=== PATIENT | male | born 1960 | race Two or more races ===

== ENCOUNTER → 2023-05-29 08:19 | Outpatient (REF) | payer BC, SELFPAY | LOC: HWRAD 08:19 | PROVIDERS: ATTENDING PHYSICIAN Physician Assistant; FAMILY PHYSICIAN Family Medicine | DX: C64.2 Malignant neoplasm of left kidney, except renal pelvis (principal) | CPT/HCPCS: 71250; 74160; Q9967 ==

== ENCOUNTER → 2023-05-29 08:24 | Outpatient (REF) | payer SELFPAY | LOC: HWRAD 08:24 | PROVIDERS: ATTENDING PHYSICIAN Internal Medicine Cardiovascular Disease; FAMILY PHYSICIAN Family Medicine | DX: E78.2 Mixed hyperlipidemia (principal); R79.89 Other specified abnormal findings of blood chemistry; R73.9 Hyperglycemia, unspecified | CPT/HCPCS: 75571 ==

== ENCOUNTER → 2023-08-21 10:16 | Outpatient (REF) | payer BC, SELFPAY | LOC: RAD 10:16 | PROVIDERS: ATTENDING PHYSICIAN Internal Medicine Cardiovascular Disease; FAMILY PHYSICIAN Family Medicine | DX: I25.10 Atherosclerotic heart disease of native coronary artery without angina pectoris (principal) | CPT/HCPCS: 75572; Q9967 ==

== ENCOUNTER → 2023-08-31 09:42 | Outpatient (REF) | payer BC, SELFPAY | LOC: HWRAD 09:42 | PROVIDERS: ATTENDING PHYSICIAN Family Medicine | DX: R74.01 Elevation of levels of liver transaminase levels (principal) | CPT/HCPCS: 76700 ==

== ENCOUNTER 2023-12-16 16:42 | Emergency (ER) | payer BC, SELFPAY ==
[2023-12-16 16:49] VITALS: BP 156/95
[2023-12-16 17:19] VITALS: BP 139/89; BMI 33.1
[2023-12-16 17:21] VITALS: BP 139/89
--- NOTE | 2023-12-16 17:35 | ED.GENMED ---
History of Present Illness
<Caridad Pete PA-C - Last Filed: 12/17/23 00:28>
General
Chief Complaint: Abdominal Pain
Source: patient
Exam Limitations: none
Time Seen by Provider: 12/16/23 17:19
Nursing documentation reviewed up to this point in time: agreed with
History of Present Illness
History of Present Illness:
Patient is a 63-year-old male with history of kidney stones, kidney cancer status postresection presenting to the emergency department acute onset right lower quadrant abdominal pain around 11 AM this morning. Patient states he had a sharp pain in
his right lower quadrant which has been intermittent since. Patient denies any radiation of pain into his back or into his groin. He has had some nausea, although no vomiting. He then went to the bathroom and noticed very dark/bloody urine. Came
to the emergency department for further evaluation. Patient denies any associated dysuria. Pain feels similar to prior kidney stones.
Patient does note some chills/sweats throughout the night last night although he did receive his COVID/flu vaccine yesterday.
Patient does have a history of kidney stones which he follows with Dr. Jacobsen. He had kidney cancer in his left kidney resected in 2019.
Past History
<Caridad Pete PA-C - Last Filed: 12/17/23 00:28>
Past History
ED Past Medical History: Arrthythmia (Atrial fib), Asthma and HTN
Social History
Tobacco: Non-smoker
Alcohol: Occasional
Drug: None
Personal:
Living: with family
Employment: Employed
Review of Systems
<Caridad Pete PA-C - Last Filed: 12/17/23 00:28>
Review of Systems
Allergies reviewed?: Yes
All Other Systems: ROS reviewed and negative except as documented in HPI and ROS
Phy Exam
<Caridad Pete PA-C - Last Filed: 12/17/23 00:28>
Physical Exam
Physical Exam:
Vitals: Mildly hypertensive, otherwise vital signs stable. Afebrile
General: Patient is well appearing, no acute distress
Skin: Warm and dry, no rashes or lesions
Head: Normocephalic, atraumatic
Eyes: Sclera nonicteric. EOMs intact. No nystagmus.
Throat: Protecting airway
Neck: Normal ROM, no cervical spine tenderness, no meningismus
Cardiac: Regular rate and rhythm, no murmurs.
Pulm: Normal respiratory effort, no wheezes, rales, rhonchi heard on exam.
Abdomen: Abdomen soft. Very mild abdominal tenderness in right lower quadrant without rebound tenderness or guarding. No CVA tenderness. No rashes or ecchymoses.
Extremities: No evidence of cyanosis or edema. Great distal pulses
Neuro: Grossly intact.
Psychiatric: Normal affect.
Course
<Caridad Pete PA-C - Last Filed: 12/17/23 00:28>
Orders/Labs/Results
Orders:
Orders
12/16/23 17:32
Complete Blood Count/With Diff Urgent
Comprehensive Metabolic Panel Urgent
Lipase Urgent
12/16/23 17:33
CT Abd/pel Without Iv Or Oral Urgent
Comment: hx kidney stones
Reason For Exam: RLQ abdominal pain, +hemturia
0.9% Sodium Chloride 1000 ml [Nss] 1,000 ml IV BOLUS
12/16/23 18:11
Ketorolac [Toradol] 15 mg IV NOW STA
12/16/23 18:16
Urinalysis Reflex To Culture Urgent
Date Specimen was Collected: 12/16/23
Time Specimen was Collected: 18:11
Urine Microscopic Reflex Cult Urgent
12/16/23 19:55
Tamsulosin [Flomax] 0.4 mg PO NOW STA
Abnormal Lab Results
12/16/23 12/16/23
17:32 18:16
RBC 3.95 L 10^6/uL
(4.70-6.10)
Hgb 11.7 L g/dL
(13.0-18.0)
Hct 32.7 L %
(39.0-52.0)
MPV 10.5 H fL
(7.4-10.4)
Absolute Lymphs (auto) 0.8 L 10^3/uL
(1.2-3.4)
Neutrophils % 75.3 H %
(42.2-75.2)
Lymphocytes % 11.9 L %
(20.5-51.1)
Carbon Dioxide 20 L mmol/L
(22-30)
Glucose 112 H mg/dl
(70-99)
Total Bilirubin 1.5 H mg/dl
(0.2-1.3)
Urine Ketones Trace A
(Negative)
Ur Occult Blood Reflex 4+ A
(Negative)
Urine Bilirubin 1+ A
(Negative)
Leukocyte Esterase Rfl Trace A
(Negative)
Urine RBC 50-60 A /HPF
(0-2)
Urine Bacteria (Reflex) Few A
(Negative)
Urine Albumin (Reflex) 2+ A
(Neg - Trace)
12/16/23 17:32
12/16/23 17:32
Vital Signs
Initial and Last Documented VS:
Initial Vital Signs
Temp Pulse Resp BP Pulse Ox
98.9 F 69 16 156/95 97
12/16/23 16:49 12/16/23 16:49 12/16/23 16:49 12/16/23 16:49 12/16/23 16:49
Last Documented Vital Signs
Temp Pulse Resp BP Pulse Ox
98.9 F 77 22 145/77 97
12/16/23 16:49 12/16/23 19:00 12/16/23 19:00 12/16/23 19:00 12/16/23 19:00
<Wade Casanova, DO - Last Filed: 12/16/23 20:25>
Orders/Labs/Results
Orders:
Orders
12/16/23 17:32
Complete Blood Count/With Diff Urgent
Comprehensive Metabolic Panel Urgent
Lipase Urgent
12/16/23 17:33
CT Abd/pel Without Iv Or Oral Urgent
Comment: hx kidney stones
Reason For Exam: RLQ abdominal pain, +hemturia
0.9% Sodium Chloride 1000 ml [Nss] 1,000 ml IV BOLUS
12/16/23 18:11
Ketorolac [Toradol] 15 mg IV NOW STA
12/16/23 18:16
Urinalysis Reflex To Culture Urgent
Date Specimen was Collected: 12/16/23
Time Specimen was Collected: 18:11
Urine Microscopic Reflex Cult Urgent
12/16/23 19:55
Tamsulosin [Flomax] 0.4 mg PO NOW STA
Abnormal Lab Results
12/16/23 12/16/23
17:32 18:16
RBC 3.95 L 10^6/uL
(4.70-6.10)
Hgb 11.7 L g/dL
(13.0-18.0)
Hct 32.7 L %
(39.0-52.0)
MPV 10.5 H fL
(7.4-10.4)
Absolute Lymphs (auto) 0.8 L 10^3/uL
(1.2-3.4)
Neutrophils % 75.3 H %
(42.2-75.2)
Lymphocytes % 11.9 L %
(20.5-51.1)
Carbon Dioxide 20 L mmol/L
(22-30)
Glucose 112 H mg/dl
(70-99)
Total Bilirubin 1.5 H mg/dl
(0.2-1.3)
Urine Ketones Trace A
(Negative)
Ur Occult Blood Reflex 4+ A
(Negative)
Urine Bilirubin 1+ A
(Negative)
Leukocyte Esterase Rfl Trace A
(Negative)
Urine RBC 50-60 A /HPF
(0-2)
Urine Bacteria (Reflex) Few A
(Negative)
Urine Albumin (Reflex) 2+ A
(Neg - Trace)
12/16/23 17:32
12/16/23 17:32
Vital Signs
Initial and Last Documented VS:
Initial Vital Signs
Temp Pulse Resp BP Pulse Ox
98.9 F 69 16 156/95 97
12/16/23 16:49 12/16/23 16:49 12/16/23 16:49 12/16/23 16:49 12/16/23 16:49
Last Documented Vital Signs
Temp Pulse Resp BP Pulse Ox
98.9 F 77 22 145/77 97
12/16/23 16:49 12/16/23 19:00 12/16/23 19:00 12/16/23 19:00 12/16/23 19:00
<Caridad Pete PA-C - Last Filed: 12/17/23 00:28>
MDM/Problems Addressed
Differential Diagnosis Includes:
Not limited to: Kidney stone, UTI, pyelonephritis, appendicitis, incarcerated hernia, prostatitis
MDM/Problems Addressed:
63-year-old male presenting with acute onset right lower abdominal pain associated with an episode of hematuria at home. Also with few episodes of vomiting, and nausea. No fever or chills. No dysuria. Patient does have history of kidney stones.
Mildly hypertensive on arrival, otherwise vital signs stable. Physical exam as above. Patient is well-appearing in no apparent distress. Very mild tenderness noted in right lower quadrant without rebound tenderness or guarding. Patient has no
CVA tenderness. Heart regular rate and rhythm. Lungs clear bilaterally. Patient is perfusing well. Differential broad at this time although high suspicion for kidney stone given history and hematuria. Other considerations include
pyelonephritis, appendicitis, diverticulitis, muscle strain. No evidence of any rash to suggest zoster. Will check basic labs, urine. Will obtain noncontrast CT abdomen/pelvis. Will give IV fluids and Toradol. Closely monitor and reassess
Chronic conditions affecting care:
History of kidney stones
Acute Exacerbation and/or Progression of Chronic Illness:
Obstructing right ureteral stone
<Caridad Pete PA-C - Last Filed: 12/17/23 00:28>
*Radiology
Radiology exam reviewed: preliminary read by ED provider and radiology read reviewed (3.5 mm obstructing calculus at right UPJ)
*Pulse Oximetry
Patient hypoxic: no
*EKG
Interpreted by ED Provider?: NA
*Dry Transfer Worker Interpretation
Rate: Dry Transfer Worker- N/A
*Critical Care Note
Total Time (30-74mins, 75-104mins- exclusive of procedures): Not Applicable
<Caridad Pete PA-C - Last Filed: 12/17/23 00:28>
Patient Management
Discussion with other providers: Garbage Pick Up Worker (Urologist- Dr. Cleveland)
<Caridad Pete PA-C - Last Filed: 12/17/23 00:28>
Update Note
Update Note:
Update: Labs reviewed. No clinically significant abnormalities. Urine is positive for blood, although does not appear infected. CT abdomen/pelvis pending. Patient remains comfortable.
Update: CT report reviewed. 3.5 mm obstructing calculus at right UPJ with mild right hydronephrosis. Patient's pain has been well-controlled here in emergency department with dose of Toradol. Patient is afebrile with no leukocytosis. No evidence
of urinary tract infection. Do feel patient is fit for trial of passage of stone outpatient. Will arrange for outpatient urology follow-up, pain management, Flomax. Strict return precautions discussed with patient regarding any signs of
infection, etc.
Upon discharge- patient did note that he was leaving for a trip to [facility] in a few days for the next 2 weeks. Did discuss this with urologist on-call who feels patient is stable for trip. Recommended follow-up with urology, Dr. Jacobsen
outpatient. Will send a few days of oral ketorolac as recommended by urologist. Patient comfortable with discharge. All questions answered. Patient seen with attending physician
ED Attending Note
<Caridad Pete PA-C - Last Filed: 12/17/23 00:28>
-
Portions of this chart may have been created with voice recognition software.� Occasional wrong word or��sound alike� substitutions may have occurred due to the inherent limitations of voice recognition software.
<Wade Casanova DO - Last Filed: 12/16/23 20:25>
ED Attending Note
Patient seen and examined by attending physician: Yes
I performed a history and physical exam of patient and discussed management with resident, I reviewed resident's note and agree with documented findings and plan of care.: Yes
ED Attending Note:
I reviewed and agree with history and treatment plan by Caridad Daniels. My exam revealed 61-year-old male no acute distress. No signs of UTI or infected stone. Patient stable for discharge.
Discharge Plan
Departure
Patient Disposition: Home (Routine Discharge)
Date of Disposition: 12/16/23
Time of Disposition: 19:55
Patient with high blood pressure during this ER visit?: Yes
Condition: Good
Covid-19: Not Applicable
Discharge Problem:
Obstruction of right ureteropelvic junction (UPJ) due to stone
Instructions: Kidney Stones (DC), BLOOD PRESSURE
Prescriptions:
New
ondansetron 4 mg tablet,disintegrating
4 mg PO Q8H PRN (Reason: nausea and vomiting) Qty: 10 0RF
tamsulosin [Flomax] 0.4 mg capsule
0.4 mg PO DAILY Qty: 14 0RF
oxycodone 5 mg tablet
5 mg PO Q6H PRN (Reason: Pain) Qty: 7 0RF
ketorolac 10 mg tablet
10 mg PO Q6H PRN (Reason: Pain) Qty: 12 0RF
Rx Instructions:
maximum total duration of 5 days from all oral, intranasal, or parenteral formulations
No Action
lisinopril [Prinivil] 40 MG tablet
40 mg PO BID
carvedilol 12.5 MG tablet
12.5 mg PO BID Qty: 60 11RF
rivaroxaban [Xarelto] 20 MG tablet
20 mg PO QPM Qty: 30 11RF
acetaminophen 325 MG tablet
650 mg PO BIDPRN PRN (Reason: pain/headache)
amlodipine 5 MG tablet
5 mg PO DAILY
dextromethorphan-guaifenesin [Mucinex DM] 1 EACH tablet extended release 12 hr
1 ea PO [id number] PRN (Reason: cough/congestion)
multivitamin with folic acid [Tab-A-Domenico] 1 TABLET tablet
1 tab PO HS
albuterol sulfate 1 PUFF HFA aerosol inhaler
2 puff inhalation R Q4HPRN PRN (Reason: Wheezing, SOB) Qty: 1 0RF
promethazine-codeine 5 ML syrup
5 ml PO Q4HPRN PRN (Reason: cough) Qty: 120 0RF
Rx Instructions:
May take 1 or 2 tsp every 4 hours as needed
prednisone 20 MG tablet
20 mg PO DAILY Qty: 4 0RF
ondansetron 4 MG tablet,disintegrating
4 mg PO TIDPRN PRN (Reason: nausea/vomiting) Qty: 9 0RF
hydrocodone-acetaminophen 1 TABLET tablet
1 tab PO Q4HPRN PRN (Reason: kidney stone pain) Qty: 12 0RF
Referrals:
Angel Jacobsen MD [Active] - Tomorrow
Jossie Mendez DO [Family Provider] -
Activity Restrictions/Additional Instructions:
RETURN TO THE EMERGENCY DEPARTMENT WITH ANY FEVERS, CHILLS, INTRACTABLE PAIN, ANY SIGNS OF INFECTION, NAUSEA/VOMITING, WORSENING IN CURRENT SYMPTOMS, OR ANY OTHER CONCERNS
-A few prescriptions have been sent to your pharmacy.
-For pain management�you can take ketorolac 10 mg every 4-6 hours as needed. You should not take ketorolac in addition to any ibuprofen, Aleve, Motrin, Advil, etc. you can take oxycodone if severe pain. This may cause drowsiness and you should not
take prior to driving.
-Is important stay well-hydrated. You should strain your urine.
-As discussed that you should follow-up with Dr. Jacobsen tomorrow for further evaluation/management.
Monitor your symptoms closely and return to the emergency department with any acute worsening/new symptoms.
Interventions
Interventions:
*Risk Screen - Suicide Last Done: 12/16/23 16:49
*General Assessment Last Done: 12/16/23 17:19
*Neglect/Abuse Screening Last Done: 12/16/23 17:19
ED- Fall Risk Assessment Last Done: 12/16/23 17:19
*ED COVID-19 Vaccine History Last Done: 12/16/23 17:19
*Nursing Disposition Last Done: 12/16/23 20:15
UG-Mvztay-Lcknrvwpuw Assessment Last Done: 12/16/23 17:19
Discharge Date and Time
Discharge Date/Time: 12/16/23 20:15
Print Language: SINHALA
[2023-12-16] MEDS: NSS 1000 IV (17:42)
[2023-12-16 17:51] LABS: % Basophils 0.3 % (0-2); % Eosinophils 3.8 % (0-6); % Immature Granulocytes 0.3 % (0-0.5); % Lymphocytes 11.9 % (20.5-51.1); % Monocytes 8.4 % (1.7-9.3); % Neutrophils 75.3 % (42.2-75.2); Absolute Eosinophils 0.3 10^3/uL (0-0.7); Absolute Lymphocytes 0.8 10^3/uL (1.2-3.4); Absolute Monocytes 0.6 10^3/uL (0.1-0.6); Absolute Neutrophils 4.9 10^3/uL (1.4-6.5); Hematocrit 32.7 % (39.0-52.0); Hemoglobin 11.7 g/dL (13.0-18.0); Mean Corp Hgb Conc. 35.8 g/dL (33.0-37.0); Mean Corpuscular Hgb 29.6 pg (27.0-31.0); Mean Corpuscular Volume 82.8 fL (80.0-94.0); Mean Platelet Volume 10.5 fL (7.4-10.4); Nucleated Red Blood Cells % 0 % (-); Platelet Count 138 10^3/uL (130-400); Red Blood Cell Count 3.95 10^6/uL (4.70-6.10); Red Cell Dist. Width 12.4 % (11.5-14.5); White Blood Cell Count 6.6 10^3/uL (4.8-10.8)
[2023-12-16 18:07] LABS: ALT (SGPT) 35 U/L (0-50); AST (SGOT) 50 U/L (17-59); Albumin 4.4 g/dl (3.5-5.0); Alkaline Phosphatase 58 U/L (38-126); Blood Urea Nitrogen 15 mg/dl (9-20); Calcium 9.4 mg/dl (8.4-10.2); Carbon Dioxide 20 mmol/L (22-30); Chloride 105 mmol/L (98-107); Estimated Creatinine Clearance 87 ml/min; Glucose 112 mg/dl (70-99); Potassium 4.2 mmol/L (3.5-5.1); Sodium 142 mmol/L (135-145); Total Bilirubin 1.5 mg/dl (0.2-1.3); eGFR > 60.00
[2023-12-16] MEDS: TORADOL 15 MG IV (18:16)
[2023-12-16 18:18] VITALS: BP 159/96
[2023-12-16 18:18] LABS: Lipase 173 U/L (23-300)
[2023-12-16 18:26] LABS: Urine Albumin 2+ (Neg - Trace); Urine Bilirubin 1+ (Negative); Urine Character Very Cloudy (Clear); Urine Color Brown; Urine Glucose Negative (Negative); Urine Ketone Trace (Negative); Urine Leukocyte Trace (Negative); Urine Nitrite Negative (Negative); Urine Occult Blood 4+ (Negative); Urine Specific Gravity 1.025 (<1.030); Urine Urobilinogen Negative (Neg - 1+)
[2023-12-16 18:34] LABS: Urine Squamous Cell 0-2 /LPF (Few)
[2023-12-16 18:35] LABS: Urine Red Blood Cell 50-60 /HPF (0-2); Urine White Cell 0-2 /HPF (0-5)
[2023-12-16 18:36] LABS: Urine Bacteria Few (Negative); Urine Calcium Oxalate Crystals Present
[2023-12-16 19:00] VITALS: BP 145/77
[2023-12-16] MEDS: FLOMAX 0.4 MG PO (20:11)
== END 2023-12-16 20:15 | disposition home or self-care (01) ==
LOC: EMR 16:42
PROVIDERS: Emergency Medicine; Physician Assistant; EMERGENCY PHYSICIAN Emergency Medicine; FAMILY PHYSICIAN Family Medicine
DX: N13.2 Hydronephrosis with renal and ureteral calculous obstruction (principal); I10 Essential (primary) hypertension; J45.909 Unspecified asthma, uncomplicated; I48.91 Unspecified atrial fibrillation; K76.0 Fatty (change of) liver, not elsewhere classified; K21.9 Gastro-esophageal reflux disease without esophagitis; Z79.82 Long term (current) use of aspirin; Z85.528 Personal history of other malignant neoplasm of kidney; Z87.442 Personal history of urinary calculi; Z88.5 Allergy status to narcotic agent
CPT/HCPCS: 99284; 96374; 96361; 74176; 80053; 81003; 81015; 83690; 85025

== ENCOUNTER 2023-12-17 12:58 | Inpatient (IN) | payer BC, SELFPAY ==
[2023-12-17] VITALS (8 sets, daily range): BP systolic 120–152; BP diastolic 78–96; BMI 33.2; BMI 33.1
--- NOTE | 2023-12-17 07:30 | ED.GENMED ---
History of Present Illness
General
Chief Complaint: Flank Pain
Source: patient and spouse
Exam Limitations: none
Time Seen by Provider: 12/17/23 07:13
Nursing documentation reviewed up to this point in time: agreed with
History of Present Illness
History of Present Illness:
63-year-old male with past medical history of hypertension previous A-fib not currently anticoagulated presenting to the emergency department today with concerns of ongoing discomfort nausea vomiting since being discharged last night after being
diagnosed with a kidney stone to the right UPJ. Patient denies any fevers chest pain shortness of breath he has tried using Zofran at home as well as Motrin without relief of symptoms. He did have a partial resection of his left kidney in the past
due to will a mass but claims to have normal function to the left kidney as far as he is aware
Past History
Past History
ED Past Medical History: Arrthythmia (Atrial fib), Asthma and HTN
Social History
Tobacco: Non-smoker
Alcohol: Occasional
Drug: None
Personal:
Living: with family
Employment: Employed
Review of Systems
Review of Systems
Allergies reviewed?: Yes
All Other Systems: ROS reviewed and negative except as documented in HPI and ROS
Phy Exam
Physical Exam
Physical Exam:
GENERAL: Alert , in no apparent distress
EYE: pupils equal and reactive
NECK: Supple, no significant adenopathy.
ENT: o/p clr, mmm.
CARDIAC: Regular rate and rhythm .
LUNGS: Clear breath sounds bilaterally, no acute respiratory distress, no wheezes/rales/rhonchi
ABDOMEN: Soft, without focal tenderness, no r/g, no cvat
NEUROLOGICAL: Alert and oriented, no focal neuro deficits
SKIN: Warm and dry, skin intact.
MUSCULOSKELETAL: No edema, well perfused.
PSYCH: Normal and appropriate interaction.
Course
Orders/Labs/Results
Orders:
Orders
12/17/23 07:25
0.9% Sodium Chloride 1000 ml [Nss] 1,000 ml IV BOLUS
Ketorolac [Toradol] 15 mg IV NOW STA
Ondansetron Injectable [Zofran] 4 mg IV NOW STA
12/17/23 07:41
Complete Blood Count/With Diff Urgent
Comprehensive Metabolic Panel Urgent
12/17/23 09:13
Urinalysis Reflex To Culture Urgent
Date Specimen was Collected: 12/17/23
Time Specimen was Collected: 09:12
Urine Microscopic Reflex Cult Urgent
12/17/23 09:27
HYDROmorphone [Dilaudid] 0.5 mg IV NOW STA
12/17/23 10:51
Tamsulosin [Flomax] 0.4 mg PO NOW STA
Abnormal Lab Results
12/17/23 12/17/23
07:41 09:13
RBC 3.83 L 10^6/uL
(4.70-6.10)
Hgb 11.6 L g/dL
(13.0-18.0)
Hct 32.7 L %
(39.0-52.0)
Plt Count 127 L 10^3/uL
(130-400)
Absolute Lymphs (auto) 0.9 L 10^3/uL
(1.2-3.4)
Absolute Monos (auto) 0.7 H 10^3/uL
(0.1-0.6)
Neutrophils % 77.9 H %
(42.2-75.2)
Lymphocytes % 11.7 L %
(20.5-51.1)
Monocytes % 9.5 H %
(1.7-9.3)
Carbon Dioxide 20 L mmol/L
(22-30)
Creatinine 1.7 H mg/dL
(0.7-1.3)
Glucose 136 H mg/dl
(70-99)
Total Bilirubin 1.5 H mg/dl
(0.2-1.3)
Ur Occult Blood Reflex 2+ A
(Negative)
Urine RBC 3-6 A /HPF
(0-2)
Urine Bacteria (Reflex) Few A
(Negative)
12/17/23 07:41
12/17/23 07:41
Vital Signs
Initial and Last Documented VS:
Initial Vital Signs
Temp Pulse Resp BP Pulse Ox
98.1 F 71 18 145/96 98
12/17/23 07:09 12/17/23 07:09 12/17/23 07:09 12/17/23 07:09 12/17/23 07:09
Last Documented Vital Signs
Temp Pulse Resp BP Pulse Ox
98.1 F 71 18 120/78 98
12/17/23 07:09 12/17/23 07:09 12/17/23 07:09 12/17/23 09:00 12/17/23 10:45
MDM/Problems Addressed
MDM/Problems Addressed:
63-year-old male presenting to the emergency department with persisting nausea vomiting discomfort related to a diagnosed kidney stone from yesterday. No fevers normal temperature here normal vital signs generally well-appearing here no ongoing
vomiting. Plan for symptomatic treatment repeated labs and urinalysis. Labs showing elevated creatinine level 1.7 from 1.1 which was obtained yesterday. This is especially concerning concerning his left kidney had partial resection. Case
discussed with urology recommending observation tonight potential intervention tomorrow as needed. He was started on Flomax and otherwise will be monitored here.
*Critical Care Note
Total Time (30-74mins, 75-104mins- exclusive of procedures): Not Applicable
ED Attending Note
-
Portions of this chart may have been created with voice recognition software.� Occasional wrong word or��sound alike� substitutions may have occurred due to the inherent limitations of voice recognition software.
Discharge Plan
Departure
Patient Disposition: Admit
Date of Disposition: 12/17/23
Time of Disposition: 11:10
Admit to: Med/Surg
Admit to doctor: Grady
Presentation/result/management discussed w/ accepting MD/DO: Hospitalist
Patient with high blood pressure during this ER visit?: No
Condition: Good
Covid-19: Not Applicable
Discharge Problem:
Calculus, ureteral, PATRICIA (acute kidney injury)
Prescriptions:
No Action
lisinopril [Prinivil] 40 MG tablet
40 mg PO BID
carvedilol 12.5 MG tablet
12.5 mg PO BID Qty: 60 11RF
rivaroxaban [Xarelto] 20 MG tablet
20 mg PO QPM Qty: 30 11RF
acetaminophen 325 MG tablet
650 mg PO BIDPRN PRN (Reason: pain/headache)
amlodipine 5 MG tablet
5 mg PO DAILY
dextromethorphan-guaifenesin [Mucinex DM] 1 EACH tablet extended release 12 hr
1 ea PO [id number] PRN (Reason: cough/congestion)
multivitamin with folic acid [Tab-A-Domenico] 1 TABLET tablet
1 tab PO HS
albuterol sulfate 1 PUFF HFA aerosol inhaler
2 puff inhalation R Q4HPRN PRN (Reason: Wheezing, SOB) Qty: 1 0RF
promethazine-codeine 5 ML syrup
5 ml PO Q4HPRN PRN (Reason: cough) Qty: 120 0RF
Rx Instructions:
May take 1 or 2 tsp every 4 hours as needed
prednisone 20 MG tablet
20 mg PO DAILY Qty: 4 0RF
ondansetron 4 MG tablet,disintegrating
4 mg PO TIDPRN PRN (Reason: nausea/vomiting) Qty: 9 0RF
hydrocodone-acetaminophen 1 TABLET tablet
1 tab PO Q4HPRN PRN (Reason: kidney stone pain) Qty: 12 0RF
ondansetron 4 mg tablet,disintegrating
4 mg PO Q8H PRN (Reason: nausea and vomiting) Qty: 10 0RF
tamsulosin [Flomax] 0.4 mg capsule
0.4 mg PO DAILY Qty: 14 0RF
oxycodone 5 mg tablet
5 mg PO Q6H PRN (Reason: Pain) Qty: 7 0RF
ketorolac 10 mg tablet
10 mg PO Q6H PRN (Reason: Pain) Qty: 12 0RF
Rx Instructions:
maximum total duration of 5 days from all oral, intranasal, or parenteral formulations
Referrals:
Jossie Mendez DO [Family Provider] -
Interventions
Interventions:
*Risk Screen - Suicide Last Done: 12/17/23 07:09
*General Assessment Last Done: 12/17/23 07:09
*Neglect/Abuse Screening Last Done: 12/17/23 07:09
ED- Fall Risk Assessment Last Done: 12/17/23 07:40
WR-Wapkse-Tvpqvxzkmb Assessment Last Done: 12/17/23 07:40
ED-Male Genitourinary Assessment Last Done: 12/17/23 07:40
Discharge Date and Time
Print Language: KAZAKH
[2023-12-17] MEDS: NSS 1000 IV ×3 (07:49→21:27)
[2023-12-17 07:51] LABS: % Basophils 0.1 % (0-2); % Eosinophils 0.7 % (0-6); % Immature Granulocytes 0.1 % (0-0.5); % Lymphocytes 11.7 % (20.5-51.1); % Monocytes 9.5 % (1.7-9.3); % Neutrophils 77.9 % (42.2-75.2); Absolute Eosinophils 0.1 10^3/uL (0-0.7); Absolute Lymphocytes 0.9 10^3/uL (1.2-3.4); Absolute Monocytes 0.7 10^3/uL (0.1-0.6); Absolute Neutrophils 5.8 10^3/uL (1.4-6.5); Hematocrit 32.7 % (39.0-52.0); Hemoglobin 11.6 g/dL (13.0-18.0); Mean Corp Hgb Conc. 35.5 g/dL (33.0-37.0); Mean Corpuscular Hgb 30.3 pg (27.0-31.0); Mean Corpuscular Volume 85.4 fL (80.0-94.0); Mean Platelet Volume 10.3 fL (7.4-10.4); Nucleated Red Blood Cells % 0 % (-); Platelet Count 127 10^3/uL (130-400); Red Blood Cell Count 3.83 10^6/uL (4.70-6.10); Red Cell Dist. Width 12.4 % (11.5-14.5); White Blood Cell Count 7.4 10^3/uL (4.8-10.8)
[2023-12-17 08:01] LABS: ALT (SGPT) 31 U/L (0-50); AST (SGOT) 41 U/L (17-59); Alkaline Phosphatase 60 U/L (38-126); Blood Urea Nitrogen 17 mg/dl (9-20); Carbon Dioxide 20 mmol/L (22-30); Chloride 104 mmol/L (98-107); Estimated Creatinine Clearance 56 ml/min; Glucose 136 mg/dl (70-99); Potassium 3.9 mmol/L (3.5-5.1); Sodium 139 mmol/L (135-145); Total Bilirubin 1.5 mg/dl (0.2-1.3); Total Protein 6.4 g/dl (6.3-8.2); eGFR 45.02
[2023-12-17] MEDS: TORADOL 15 MG IV (08:03)
[2023-12-17] MEDS: ZOFRAN 4 MG IV (08:05)
[2023-12-17 09:37] LABS: Urine Albumin Negative (Neg - Trace); Urine Bilirubin Negative (Negative); Urine Character Clear (Clear); Urine Color Yellow; Urine Glucose Negative (Negative); Urine Ketone Negative (Negative); Urine Leukocyte Negative (Negative); Urine Nitrite Negative (Negative); Urine Occult Blood 2+ (Negative); Urine Specific Gravity 1.025 (<1.030); Urine Urobilinogen Negative (Neg - 1+)
[2023-12-17] MEDS: DILAUDID 0.5 MG IV ×3 (09:37→21:27)
[2023-12-17 09:54] LABS: Urine Bacteria Few (Negative); Urine White Cell 0-2 /HPF (0-5)
[2023-12-17] MEDS: FLOMAX 0.4 MG PO (11:33)
--- NOTE | 2023-12-17 12:08 | HPS.HSE ---
Family Physician
-
Family Physician: Jossie Mendez, DO
Chief Complaint
-
nausea and vomiting
History of Present Illness
Mr. Kevyn Alva is a 63 yo man with hx paroxysmal afib s/p multiple cardioversions not on AC, HTN, asthma, Left RCC s/p resection 2019, ER visit on 12/15 for RLQ pain found to have renal stone (3.5mm obstructing calculus right UPJ) represents
today for continued pain, nausea and vomiting.
Patient was feeling better in the ER yesterday, was started on Flomax. Then after he had a sandwich for dinner, he had vomiting over 6 times. This morning he had significant pain despite Percocet and decided to come back to the ER. He also took 6
Advil overnight.
No fevers/chills. No chest pain or shortness of breath. No headache. No LE swelling. He was recently started on Wegovy for pre-DM and weight loss and has had significant weight loss with improvement in A1c, liver enzymes, cholesterol panel.
Medical History
Past Medical History
Past Medical History: Reports Other (pre-DM, Essential HTN, Asthma, RCC s/p partial Nephrectomy, HLD)
Past Surgical History: Reports Urological (nephrectomy )
Social History
Tobacco: Non-smoker
Alcohol: Occasional
Family History
Family History: Not pertinent
Allergies / Home Medications
Allergies reflects when Allergies were last updated in [facility].
Home Medications with original date entered in [facility]
Allergy/Medication List:
Allergies
Allergy/AdvReac Type Severity Reaction Status Date / Time
oxycodone Allergy itching, Verified 12/17/23 07:09
rash
Home Medications
acetaminophen 325 mg tablet 650 mg PO BIDPRN PRN MILD PAIN 05/25/17
multivitamin with folic acid 400 mcg tablet (Tab-A-Domenico) 1 tab PO HS 05/25/17
aspirin 81 mg tablet,delayed release 81 mg PO DAILY 12/17/23
carvedilol 12.5 mg tablet 25 mg PO BID 12/17/23
icosapent ethyl 1 gram capsule (Vascepa) 2 g PO BID 12/17/23
rosuvastatin 10 mg tablet 10 mg PO QPM 12/17/23
semaglutide (weight loss) 1.7 mg/0.75 mL subcutaneous pen injector (Wegovy) 1.7 mg SC SA 12/17/23
valsartan 320 mg tablet 320 mg PO DAILY 12/17/23
Review of Systems
-
History Source: Patient
A 12 point ROS was completed and negative except as noted: Yes
Physical Exam
Vital Signs
Vital Signs
Temp Pulse Resp BP Pulse Ox
98.1 F 71 18 130/93 96
12/17/23 07:09 12/17/23 07:09 12/17/23 07:09 12/17/23 11:00 12/17/23 11:45
Physical Exam
General: No Apparent Distress
HEENT: PERRLA
Respiratory: Clear; No Wheezes
Cardiac: S1/S2 and Regular Rhythm
GI: Soft and Non Tender
Genito-urinary: Other (mild tenderness RLQ )
Musculoskeletal: No Edema
Skin: Warm and Dry; No Rash
Neuro: AO x 3
Psych: Calm
Laboratory Results
-
12/17/23 07:41
12/17/23 07:41
Laboratory Results
Total Bilirubin 1.5 mg/dl (0.2-1.3) H 12/17/23 07:41
AST 41 U/L (17-59) 12/17/23 07:41
ALT 31 U/L (0-50) 12/17/23 07:41
Alkaline Phosphatase 60 U/L (38-126) 12/17/23 07:41
Data Reviewed
-
Diagnostic Radiology: Report Reviewed by me
Lab Data: Labs Reviewed by me
Impression/Plan
-
Mr. Kevyn Alva is a 63 yo man with hx paroxysmal afib s/p multiple cardioversions not on AC, HTN, asthma, Left RCC s/p resection 2018, ER visit on 12/15 for RLQ pain found to have renal stone (3.5mm obstructing calculus right UPJ) represents
today for continued pain, nausea and vomiting.
Triage VS: T 98.1, P 71, RR 18, Bp 145/96, SpO2 98%
LABS: WBC 7.4, Hg 11.6, PLT 127, Na 139, K+ 3.9, Cl 104, BUN 17, Cr 1.7, Glucose 136
UA with 0-[address] A/P (12/16/23)
IMPRESSION:
1). There is a 3.5 mm obstructing calculus at the right ureteropelvic junction associated with mild right hydronephrosis
2). There are bilateral nonobstructing renal calculi.
3). There are bilateral renal cysts.
4). There is degenerative disc disease at L4-5
Obstructing Nephrolithiasis with mild right Hydronephrosis
Associated PATRICIA
-case discussed with Dr. Grace and plan is for observation
-NPO after MN for possible intervention tomorrow
-daily Flomax
-IVF
-pain control
-hold off on further NSAIDs given PATRICIA
-IV Zofran PRN (obtaining EKG)
-hold PIPE FINISHING SUPERVISOR Valsartan
Paroxysmal Afib
-not on AC
-PIPE FINISHING SUPERVISOR Coreg
Essential HTN
-PIPE FINISHING SUPERVISOR Coreg
RCC s/p resection 2018
DVT PPx SCD
FULL CODE
--- NOTE | 2023-12-17 14:00 | PTCARENOTE ---
12/16- Patient transferred and oriented to unit without issue. AAOX3; Skin CDI; Lungs CTA; POX=99% on RA; Patient denies any pain or needs at this time.
--- NOTE | 2023-12-17 15:36 | CON.MD ---
Consultation - Medical
-
Dictated note to follow
63M well-known to [facility] (follows w/ Dr. Jacobsen) presenting for [facility] ED visit w/n 24 hrs w/ intractable right flank pain and vomiting.
Seen on 12/15 w/ RLQ pain.
CTAP w/o IV contrast => 3.5 mm obstructing right UPJ stone w/ moderate hydronephrosis.
Discharged home on MET w/ tamsulosin + analgesics.
Noted recurrent and severe renal colic, nausea, and vomiting after going home.
Denies F/C.
WBC WNL
Cr 1.7 (from 1.1)
UA +RBCs, not indicative of UTI
A/P:
Obstructing right UPJ stone
PATRICIA
Intractable right renal colic
- Admitted to Hospitalist
- NPO@MN
- To OR tomorrow afternoon for cysto + left ureteroscopy/laser lithotripsy/stone extraction/stent placement
- Hold aspirin
Discussed plan of care w/ patient this afternoon.
D/w Dr. Duke.
[2023-12-17] MEDS: CRESTOR 10 MG PO (17:02)
[2023-12-17] MEDS: COREG 25 MG PO (20:00)
[2023-12-17] MEDS: TYLENOL 650 MG PO (20:05)
[2023-12-18] VITALS (13 sets, daily range): BP systolic 104–158; BP diastolic 62–95
[2023-12-18] MEDS: NSS 1000 IV ×2 (05:08→16:41)
[2023-12-18] MEDS: TYLENOL 650 MG PO (05:19)
[2023-12-18 07:35] LABS: % Basophils 0.3 % (0-2); % Eosinophils 6.2 % (0-6); % Immature Granulocytes 0.4 % (0-0.5); % Lymphocytes 13.9 % (20.5-51.1); % Monocytes 10.6 % (1.7-9.3); % Neutrophils 68.6 % (42.2-75.2); Absolute Eosinophils 0.5 10^3/uL (0-0.7); Absolute Monocytes 0.8 10^3/uL (0.1-0.6); Hematocrit 32.9 % (39.0-52.0); Hemoglobin 11.4 g/dL (13.0-18.0); Mean Corp Hgb Conc. 34.7 g/dL (33.0-37.0); Mean Corpuscular Hgb 29.7 pg (27.0-31.0); Mean Corpuscular Volume 85.7 fL (80.0-94.0); Mean Platelet Volume 10.6 fL (7.4-10.4); Nucleated Red Blood Cells % 0 % (-); Platelet Count 122 10^3/uL (130-400); Red Blood Cell Count 3.84 10^6/uL (4.70-6.10); Red Cell Dist. Width 12.8 % (11.5-14.5); White Blood Cell Count 7.3 10^3/uL (4.8-10.8)
[2023-12-18 08:12] LABS: Blood Urea Nitrogen 21 mg/dl (9-20); Calcium 8.6 mg/dl (8.4-10.2); Carbon Dioxide 21 mmol/L (22-30); Chloride 105 mmol/L (98-107); Estimated Creatinine Clearance 42 ml/min; Glucose 110 mg/dl (70-99); Magnesium 1.9 mg/dl (1.6-2.3); Potassium 4.1 mmol/L (3.5-5.1); Sodium 139 mmol/L (135-145); eGFR 31.32
[2023-12-18] MEDS: ASPIR LOW (ENTERIC COATED) 81 MG PO (08:13)
[2023-12-18] MEDS: COREG 25 MG PO ×2 (08:14→20:05)
[2023-12-18] MEDS: FLOMAX 0.4 MG PO (08:14)
--- NOTE | 2023-12-18 08:36 | W.PN.HOSP.TC ---
Today's Communication/Plan
-
IV fluids
N.p.o.
Monitor renal function
Bladder scan
Assessment / Plan
Assessment / Plan
Gen-AAOx3, NAD
HEENT-NC, AT, anicteric, clear oral mm
Neck-supple
CV-reg, no M, +S1/S2
Lungs-clear B/L
Abd-soft, nondistended, mild right sided abdominal pain, no guarding or rebound
Ext-no edema
Musculoskeletal-no cyanosis, clubbing
Skin-warm and dry
Neuro-grossly non-focal
Psych-calm, cooperative
PATRICIA/obstructive uropathy -due to obstructing right UPJ junction calculus, 3.[address] scan. Mild right hydronephrosis noted. Bilateral nonobstructing renal calculi noted. Does have a known history of nephrolithiasis, last attack was in 2018.
Has never had cystoscopy or stenting in the past.
Urology consulted, anticipate cystoscopy and stenting today.
Hopefully PATRICIA will improve with relief of obstruction. Essentially has a solitary kidney given prior partial nephrectomy on the left side for RCC. Rapid rise in creatinine noted, 1.1 on December 15, 2.3 today. Check bladder scan for
completeness. Hold NSAIDs, valsartan.
Symptomatic nephrolithiasis -continue analgesics, IV fluids. N.p.o. for OR.
Normal anion gap metabolic acidosis - bicarbonate 21. Urine ketones negative. Suspect RTA.
Impaired fasting glucose -improving on semaglutide. Has lost 25 pounds.
Acute thrombocytopenia -unclear etiology. Monitor for now.
Paroxysmal atrial fibrillation -not on chronic anticoagulation. Treated with cardioversion in the past.
Essential hypertension -stable.
Mild intermittent asthma -stable.
Normocytic anemia -suspect chronic. Will need outpatient follow-up with PCP.
History of RCC -s/p left partial nephrectomy.
Obesity due to excess calories
Full code
Anticipated Discharge: 24 - 48 hours
Subjective/Interval History
-
Date of Service: December 18, 2023
Patient seen and examined. Complaining of mild right flank pain. Denies nausea/vomiting, fever or chills.
Objective Data
-
Labs:
Laboratory Results
12/18/23
07:09
WBC 7.3
Hgb 11.4 L
Hct 32.9 L
Plt Count 122 L
Sodium 139
Potassium 4.1
Chloride 105
Carbon Dioxide 21 L
BUN 21 H
Creatinine 2.3 H
Glucose 110 H
Calcium 8.6
Vital Signs:
Vital Signs
Temp Pulse Resp BP Pulse Ox
98.2 F 79 16 121/80 95
12/17/23 23:53 12/17/23 23:53 12/17/23 23:53 12/17/23 23:53 12/17/23 23:53
I&O
12/17/23 12/18/23 12/19/23
06:59 06:59 06:59
Intake Total 1500 / 1500
Output Total 530 / 530
Balance 970 / 970
Review of Systems
-
History Source: Patient
All other systems: Reviewed and negative
[2023-12-18] MEDS: DILAUDID 0.5 MG IV ×2 (09:14→18:21)
--- NOTE | 2023-12-18 12:28 | W.PN.URO.CBU ---
Today's Communication / Plan
-
- To OR this afternoon for cysto + RIGHT ureteroscopy/laser lithotripsy/stone extraction/stent placement
- Hold aspirin
- IV Ancef 2g prescription eyeglass maker to OR
- Given progression of PATRICIA today, plan to keep overnight w/ repeat BMP to check Cr
Reviewed risks, benefits, alternatives, and potential complications of surgical intervention via URS/LL/stone extraction/stent placement.
Potential risks and complications reviewed include but not limited to urosepsis, bleeding, ureteral/bladder injury, risk of ureteral stricture formation, need for additional procedures/surgeries.
Discussed plan of care w/ patient and spouse this afternoon.
D/w Dr. Gregory.
Assessment / Plan
-
PATRICIA
Obstructing right UPJ stone
CTAP w/o IV contrast => 3.5 mm obstructing right UPJ stone w/ moderate hydronephrosis.
WBC WNL
Cr 1.1 => 1.7 => 2.3
UA +RBCs, not indicative of UTI
Diagnosis
-
Date of Service: December 18, 2023
-
Patient Diagnosis:
PATRICIA
Obstructing right UPJ stone
Subjective
-
Notes RLQ abdominal and pelvic pain.
Denies N/V.
Objective
-
Vital Signs
Temp Pulse Resp BP Pulse Ox
98.2 F 77 20 144/88 100
12/18/23 07:38 12/18/23 07:38 12/18/23 07:38 12/18/23 07:38 12/18/23 08:15
Intake and Output
12/17/23 12/18/23 12/19/23
06:59 06:59 06:59
Intake Total 1500 / 1500
Output Total 530 / 530
Balance 970 / 970
Intake:
IV fluids (Total) 1500 / 1500
Output:
Urine, Voided 530 / 530
Laboratory Results
12/18/23 07:09
12/18/23 07:09
Physical Exam
-
General - well developed, well nourished, no acute distress
Abdomen - soft, non-tender
Genitalia - normal
Skin - warm & dry with no rash
Neuro - AOx3, no motor deficits
Extremities - no clubbing, no cyanosis, no edema
Care Review
Data Reviewed
Discussed with: Hospitalist and Family
CT Scan: Report Pers Reviewed and Image Pers Reviewed
Total Time Spent with Patient (in minutes): 45
--- NOTE | 2023-12-18 15:14 | CM ---
CM reviewed chart, patient off floor to OR. CM will continue to follow for all discharge planning needs. CM will conduct initial assessment once patient returns.
Plan; will follow for medical needs.
--- NOTE | 2023-12-18 15:22 | W.IMMPOSTOP ---
Surgical Immed Post Op Note
-
Primary Surgeon: Sanjay
Pre-op Diagnosis: PATRICIA, obstructing right ureteral stone (distal)
Post-op Diagnosis: Same
Procedure Performed: cysto, right URS/stone extraction/stent placement
Anesthesia Type: GETA
Specimen / Cultures: Stone for analysis/None
Estimated Blood Loss: Negligible
Drains: 4.7 Fr x 28 cm JJ right ureteral stent
Complications: None
Operative Findings:
4 mm stone passed into bladder w/ dilation of right ureteral orifice - recovered via basket extraction from bladder.
Concentrated debris-filled urine w/n right kidney w/o carlotta purulence.
Final KUB and cystoscopy confirming appropriate position of right ureteral stent.
Spouse updated post-op.
--- NOTE | 2023-12-18 15:28 | W.PN.UPDATE ---
Update Note
Progress Note Update
s/p right URS/stone extraction/stent placement.
Spouse updated on intra-op findings and plan of care.
Plan:
- BMP in AM to confirm Cr improvement
- D/c home tomorrow (tentatively)
- Patient's spouse has tamsulosin + Azo at home PRN
- F/U in 2 weeks w/ Dr. Jacobsen for stent removal (office will schedule)
[2023-12-18] MEDS: DETROL LA 2 MG PO (16:05)
[2023-12-18] MEDS: Pyridium 200 MG PO (16:05)
[2023-12-18] MEDS: CRESTOR 10 MG PO (16:42)
[2023-12-19 06:25] LABS: % Basophils 0.1 % (0-2); % Monocytes 4.3 % (1.7-9.3); % Neutrophils 85.6 % (42.2-75.2); Absolute Immature Granulocytes 0.1 10^3/uL (0-0.05); Absolute Lymphocytes 0.7 10^3/uL (1.2-3.4); Absolute Monocytes 0.4 10^3/uL (0.1-0.6); Hematocrit 31.4 % (39.0-52.0); Mean Corpuscular Hgb 29.5 pg (27.0-31.0); Mean Corpuscular Volume 84.2 fL (80.0-94.0); Mean Platelet Volume 11.2 fL (7.4-10.4); Nucleated Red Blood Cells % 0 % (-); Platelet Count 138 10^3/uL (130-400); Red Blood Cell Count 3.73 10^6/uL (4.70-6.10); Red Cell Dist. Width 12.3 % (11.5-14.5); White Blood Cell Count 8.1 10^3/uL (4.8-10.8)
[2023-12-19 06:47] LABS: ALT (SGPT) 23 U/L (0-50); AST (SGOT) 29 U/L (17-59); Albumin 3.6 g/dl (3.5-5.0); Alkaline Phosphatase 56 U/L (38-126); Blood Urea Nitrogen 18 mg/dl (9-20); Calcium 8.9 mg/dl (8.4-10.2); Carbon Dioxide 23 mmol/L (22-30); Chloride 107 mmol/L (98-107); Estimated Creatinine Clearance 96 ml/min; Glucose 135 mg/dl (70-99); Potassium 4.3 mmol/L (3.5-5.1); Sodium 142 mmol/L (135-145); Total Bilirubin 0.9 mg/dl (0.2-1.3); Total Protein 6.2 g/dl (6.3-8.2); eGFR > 60.00
[2023-12-19 07:05] VITALS: BP 141/85
[2023-12-19 08:12] VITALS: BP 141/85
[2023-12-19] MEDS: COREG 25 MG PO (08:33)
[2023-12-19] MEDS: ASPIR LOW (ENTERIC COATED) 81 MG PO (08:33)
[2023-12-19] MEDS: FLOMAX 0.4 MG PO (08:33)
--- NOTE | 2023-12-19 09:43 | W.PN.HOSP.TC ---
Today's Communication/Plan
-
Discharge
Assessment / Plan
Assessment / Plan
Gen-AAOx3, NAD
HEENT-NC, AT, anicteric, clear oral mm
Neck-supple
CV-reg, no M, +S1/S2
Lungs-clear B/L
Abd-soft, nondistended, mild right sided abdominal pain, no guarding or rebound
Ext-no edema
Musculoskeletal-no cyanosis, clubbing
Skin-warm and dry
Neuro-grossly non-focal
Psych-calm, cooperative
PATRICIA/obstructive uropathy -due to obstructing right UPJ junction calculus, 3.[address] scan. Mild right hydronephrosis noted. Bilateral nonobstructing renal calculi noted. PATRICIA resolved. Hold NSAIDs, valsartan.
Symptomatic nephrolithiasis -continue analgesics, IV fluids. Underwent successful cystoscopy and stenting yesterday. Follow-up in [address] Jacobsen for stent removal. Continue tamsulosin on discharge.
Normal anion gap metabolic acidosis -acidosis resolved.
Impaired fasting glucose -improving on semaglutide. Has lost 25 pounds.
Acute thrombocytopenia -unclear etiology. Monitor for now.
Paroxysmal atrial fibrillation -not on chronic anticoagulation. Treated with cardioversion in the past.
Essential hypertension -stable.
Mild intermittent asthma -stable.
Normocytic anemia -suspect chronic. Will need outpatient follow-up with PCP.
History of RCC -s/p left partial nephrectomy.
Obesity due to excess calories
Full code
Dispo -medically stable for discharge. Follow-up with urology in 2 weeks for stent removal. Follow-up with PCP.
32 minutes spent in discharge process.
Anticipated Discharge: Today
Subjective/Interval History
-
Date of Service: December 19, 2023
Patient seen and examined. No complaints.
Objective Data
-
Labs:
Laboratory Results
12/19/23
04:57
WBC 8.1
Hgb 11.0 L
Hct 31.4 L
Plt Count 138
Sodium 142
Potassium 4.3
Chloride 107
Carbon Dioxide 23
BUN 18
Creatinine 1.0
Glucose 135 H
Calcium 8.9
Total Bilirubin 0.9
AST 29
ALT 23
Alkaline Phosphatase 56
Vital Signs:
Vital Signs
Temp Pulse Resp BP Pulse Ox
97.8 F 90 16 141/85 98
12/19/23 07:05 12/19/23 08:33 12/19/23 07:05 12/19/23 08:33 12/19/23 07:05
I&O
12/18/23 12/19/23 12/20/23
06:59 06:59 06:59
Intake Total 1500 / 1500 100 / 100
Output Total 530 / 530 1150 / 1150
Balance 970 / 970 -1050 / -1050
Review of Systems
-
History Source: Patient
All other systems: Reviewed and negative
--- NOTE | 2023-12-19 09:49 | W.DS.TRANS ---
DC Summary - [employer] [place]
-
Discharge Instructions:
Sleep Apnea Risk High
Discharge Diagnosis/Procedures obstructing right ureteral stone s/p stent
placement, PATRICIA
Diet No restrictions
Activity No restrictions
Driving Restrictions No driving for 24 hours
Bathing Restrictions None
Blood Work BMP (to check renal function) in 2 weeks as
outpatient
Instructions:
Stand-Alone Forms:
Changes to Home Medications: No
Discharge Medications:
DC Medications w/original date entered in [employer]
acetaminophen 325 mg tablet 650 mg PO BIDPRN PRN MILD PAIN 05/25/17
multivitamin with folic acid 400 mcg tablet (Tab-A-Domenico) 1 tab PO HS Supplement 05/25/17
aspirin 81 mg tablet,delayed release 81 mg PO DAILY Blood Clot Prevention/Tx 12/17/23
carvedilol 12.5 mg tablet 25 mg PO BID Blood Pressure 12/17/23
icosapent ethyl 1 gram capsule (Vascepa) 2 g PO BID High Cholesterol 12/17/23
rosuvastatin 10 mg tablet 10 mg PO QPM High Cholesterol 12/17/23
semaglutide (weight loss) 1.7 mg/0.75 mL subcutaneous pen injector (Wegovy) 1.7 mg SC SA Diabetes 12/17/23
valsartan 320 mg tablet 320 mg PO DAILY Blood Pressure 12/17/23
phenazopyridine 200 mg tablet (Pyridium) 200 mg PO BID PRN dysuria 4 days #8 tabs 12/18/23
tamsulosin 0.4 mg capsule 0.4 mg PO HS 14 days #14 caps 12/18/23
Home Medication Changes
Pending Results: No
--- NOTE | 2023-12-19 10:21 | CM ---
CM reviewed with Hospitalist, patient for discharge today. Patient seen bedside, initial assessment completed. Patient resides with his and mother in a multiple story home, three steps to enter. Patient denies DME, VN, or SNF history. Patient
PCP Jossie Mendez, pharmacy [facility] in [place], confirms prescription coverage. Patient confirms he has transportation home. CM will continue to follow for all discharge planning needs.
Plan; home no needs.
[2023-12-19 11:03] VITALS: BP 140/87
== END 2023-12-19 11:32 | disposition home or self-care (01) | DRG 660 ==
LOC: 4 WEST ACU 12:58
PROVIDERS: Physician Assistant; ADMITTING PHYSICIAN Student in an Organized Health Care Education/Training Program; ATTENDING PHYSICIAN Hospitalist; CONSULT PHYSICIAN Surgery; EMERGENCY PHYSICIAN Emergency Medicine; FAMILY PHYSICIAN Family Medicine
PROC: 0TC68ZZ Extirpation of Matter from Right Ureter, Via Natural or Artificial Opening Endoscopic (ICD-10-PCS; 2023-12-18)
PROC: 0T768DZ Dilation of Right Ureter with Intraluminal Device, Via Natural or Artificial Opening Endoscopic (ICD-10-PCS; 2023-12-18)
DX: N17.9 Acute kidney failure, unspecified (principal); E87.20 Acidosis, unspecified; N13.2 Hydronephrosis with renal and ureteral calculous obstruction; I10 Essential (primary) hypertension; I48.0 Paroxysmal atrial fibrillation; E78.5 Hyperlipidemia, unspecified; J45.20 Mild intermittent asthma, uncomplicated; E66.09 Other obesity due to excess calories; Z90.5 Acquired absence of kidney; Z85.528 Personal history of other malignant neoplasm of kidney; Z79.82 Long term (current) use of aspirin; Z68.33 Body mass index [BMI] 33.0-33.9, adult
CPT/HCPCS: 74018; 76000; 80048; 80053; 81003; 81015; 82365; 83735; 85025; 93005; 96361; 96374; 96375; 99285; A4300; C1758; C1769; C1894; C2617

== ENCOUNTER 2024-01-05 05:22 | Inpatient (IN) | payer BC, SELFPAY ==
[2024-01-05] VITALS (7 sets, daily range): BP systolic 97–124; BP diastolic 64–77; BMI 30.7
[2024-01-05 02:28] LABS: % Basophils 0.1 % (0-2); % Eosinophils 7.3 % (0-6); % Immature Granulocytes 0.1 % (0-0.5); % Lymphocytes 17.4 % (20.5-51.1); % Monocytes 12.6 % (1.7-9.3); % Neutrophils 62.5 % (42.2-75.2); Absolute Eosinophils 0.5 10^3/uL (0-0.7); Absolute Lymphocytes 1.2 10^3/uL (1.2-3.4); Absolute Monocytes 0.9 10^3/uL (0.1-0.6); Absolute Neutrophils 4.4 10^3/uL (1.4-6.5); Hematocrit 38.6 % (39.0-52.0); Hemoglobin 13.5 g/dL (13.0-18.0); Mean Corpuscular Hgb 29.2 pg (27.0-31.0); Mean Corpuscular Volume 83.5 fL (80.0-94.0); Mean Platelet Volume 10.4 fL (7.4-10.4); Nucleated Red Blood Cells % 0 % (-); Platelet Count 213 10^3/uL (130-400); Red Blood Cell Count 4.62 10^6/uL (4.70-6.10)
[2024-01-05 02:33] LABS: Urine Albumin 3+ (Neg - Trace); Urine Bilirubin 1+ (Negative); Urine Character Very Cloudy (Clear); Urine Color Brown; Urine Glucose Negative (Negative); Urine Ketone Negative (Negative); Urine Leukocyte Negative (Negative); Urine Nitrite Negative (Negative); Urine Occult Blood 4+ (Negative); Urine Urobilinogen Negative (Neg - 1+); Urine pH 6.5 (5.0-9.0)
[2024-01-05 02:44] LABS: ALT (SGPT) 26 U/L (0-50); AST (SGOT) 33 U/L (17-59); Albumin 4.7 g/dl (3.5-5.0); Alkaline Phosphatase 47 U/L (38-126); Blood Urea Nitrogen 44 mg/dl (9-20); Calcium 9.9 mg/dl (8.4-10.2); Carbon Dioxide 14 mmol/L (22-30); Chloride 106 mmol/L (98-107); Glucose 143 mg/dl (70-99); Potassium 4.2 mmol/L (3.5-5.1); Sodium 139 mmol/L (135-145); Total Bilirubin 1.1 mg/dl (0.2-1.3); Total Protein 7.7 g/dl (6.3-8.2); eGFR 39.39
--- NOTE | 2024-01-05 03:08 | ED.GENMED ---
History of Present Illness
General
Chief Complaint: Male Genito-Urinary Symptoms
Source: patient and spouse
Exam Limitations: none
Time Seen by Provider: 01/05/24 01:59
Nursing documentation reviewed up to this point in time: agreed with
History of Present Illness
History of Present Illness:
The patient is a 63-year-old man with a past medical history of left-sided kidney cancer who complains of 2 to 3 days of dark urine as well as right-sided groin pain. Patient underwent placement of a right ureteral stent on 12/19/2023 for a kidney
stone. Patient reports that he was feeling well up until few days ago when he noticed that his urine started to become dark and bloody. Additionally, patient reports that he feels he is putting out less urine as well. Additionally, he is having
right groin pain and burning at the tip of his penis. His reports over the last few days he has had multiple episodes of vomiting and diarrhea. Patient reports he was supposed to get the stent removed earlier yesterday in the office, however,
due to his vomiting and diarrhea, the appointment was postponed to this Thursday.
Past History
Past History
ED Past Medical History: Arrthythmia (Atrial fib), Asthma, Cancer (Left-sided kidney cancer) and HTN
ED Past Surgical History: Urological
Social History
Tobacco: Non-smoker
Alcohol: Occasional
Drug: None
Personal:
Living: with family
Employment: Employed
Family History
Family History: Other
Review of Systems
Review of Systems
Allergies reviewed?: Yes
All Other Systems: ROS reviewed and negative except as documented in HPI and ROS
Constitutional: Reports no symptoms
EENT: Reports no symptoms
Respiratory: Reports no symptoms
Cardiac: Reports no symptoms
ABD/GI: Reports nausea, vomiting and diarrhea
: Reports dysuria, difficulty voiding, urgency and bleeding
Musculoskeletal: Reports no symptoms
Skin: Reports no symptoms
Neurological: Reports no symptoms
Endocrine: Reports no symptoms
Hematologic/Lymphatic: Reports no symptoms
Psychiatric: Reports no symptoms
Phy Exam
Physical Exam
Physical Exam:
Physical Exam
General: no apparent distress, not acutely ill
Neck: supple. no meningeal signs. normal psoterior pharynx
Heart: s1/s2 regular rate and rhythm, no murmur. equal radial pulses.
Lungs: no acute respiratory distress. clear bilaterally
Abdomen: normal bowel sounds. Mild right lower quadrant pain.
Neuro: alert and oriented. no focal neurological deficits
Skin: no rash
Psychiatric: well kept. interactive and cooperative
Extremities: no edema. no calf tenderness. negative homans. good distal pulses
Course
Orders/Labs/Results
Orders:
Orders
01/04/24 23:14
Electrocardiogram (*1) Urgent
Reason for Study: Chest Pain
Complete Blood Count/With Diff Urgent
Comprehensive Metabolic Panel Urgent
01/04/24 23:15
EKG- Treatment ONCE
01/05/24 02:17
Urinalysis Reflex To Culture Urgent
Date Specimen was Collected: 01/05/24
Time Specimen was Collected: 02:07
Urine Microscopic Reflex Cult Urgent
Urine Culture Urgent
LORENZA Source: U
Specimen Description:
Date Specimen was Collected: 01/05/24
Time Specimen was Collected: 02:07
Comment: ADD ON
01/05/24 03:08
0.9% Sodium Chloride 1000 ml [Nss] 1,000 ml IV BOLUS
01/05/24 03:13
CT Abd/pel Without Iv Or Oral Urgent
Comment:
Reason For Exam: bloody urine, ureteral stent, n/v/d
01/05/24 03:32
Add On - Microbiology Urgent
Tests Added?: urine culture
01/05/24 03:42
Ondansetron Injectable [Zofran] 4 mg .ROUTE .STK-MED ONE
01/05/24 03:43
Ondansetron Injectable [Zofran] 4 mg IV NOW STA
Abnormal Lab Results
01/05/24
02:17
RBC 4.62 L 10^6/uL
(4.70-6.10)
Hct 38.6 L %
(39.0-52.0)
Absolute Monos (auto) 0.9 H 10^3/uL
(0.1-0.6)
Lymphocytes % 17.4 L %
(20.5-51.1)
Monocytes % 12.6 H %
(1.7-9.3)
Eosinophils % 7.3 H %
(0-6)
Carbon Dioxide 14 L* mmol/L
(22-30)
BUN 44 H mg/dl
(9-20)
Creatinine 1.9 H mg/dL
(0.7-1.3)
Glucose 143 H mg/dl
(70-99)
Ur Occult Blood Reflex 4+ A
(Negative)
Urine Bilirubin 1+ A
(Negative)
Urine RBC >100 A /HPF
(0-2)
Urine Albumin (Reflex) 3+ A
(Neg - Trace)
01/05/24 02:17
01/05/24 02:17
Vital Signs
Initial and Last Documented VS:
Initial Vital Signs
Temp Resp
98.1 F 18
01/04/24 23:25 01/04/24 23:25
Last Documented Vital Signs
Temp Pulse Resp BP Pulse Ox
98.1 F 83 16 97/68 97
01/04/24 23:25 01/05/24 03:00 01/05/24 03:00 01/05/24 03:00 01/05/24 03:00
MDM/Problems Addressed
Differential Diagnosis Includes:
Ureteral stent occlusion, pyelonephritis, migration of ureteral stent
MDM/Problems Addressed:
Patient presents with acute dysuria, decreased urine output, bloody urine, and acute nausea vomiting and diarrhea
Chronic conditions affecting care:
Decreased kidney function on left due to kidney cancer
*Radiology
Radiology exam reviewed: radiology read reviewed
*Pulse Oximetry
Patient hypoxic: no
*EKG
Interpreted by ED Provider?: NA
*Lithographic Plate Maker Interpretation
Rate: normal
Interpretation: normal
Rhythm: sinus
*Critical Care Note
Total Time (30-74mins, 75-104mins- exclusive of procedures): Not Applicable
Data Reviewed
Review of Other/Old Records Reveals: Operative Reports (Ureteral placement done by Dr. Grace on 12/19/2023. Surgical note reviewed by me)
Source: patient and spouse
Patient Management
Social determinants of health affecting care: Living situation and Strong social support
Discussion with other providers: Other (Spoke to Dr. Cleveland and reviewed presentation as well patient's CT. He does not feel there is an acute urological issue. Recommends outpatient follow-up with Dr. Grace)
ED Attending Note
-
Portions of this chart may have been created with voice recognition software.� Occasional wrong word or��sound alike� substitutions may have occurred due to the inherent limitations of voice recognition software.
Discharge Plan
Departure
Patient Disposition: Admit
Date of Disposition: 01/05/24
Time of Disposition: 04:27
Admit to: Med/Surg
Presentation/result/management discussed w/ accepting MD/DO: Hospitalist
Patient with high blood pressure during this ER visit?: No
Condition: Good
Covid-19: Not Applicable
Discharge Problem:
Acute nausea vomiting and diarrhea, Acute metabolic acidosis, Acute hematuria
Prescriptions:
No Action
acetaminophen 325 MG tablet
650 mg PO BIDPRN PRN (Reason: MILD PAIN)
multivitamin with folic acid [Tab-A-Domenico] 1 TABLET tablet
1 tab PO HS
aspirin 81 mg Tablet,Delayed Release (Dr/Ec)
81 mg PO DAILY
valsartan 320 mg Tablet
320 mg PO DAILY
rosuvastatin 10 mg Tablet
10 mg PO QPM
icosapent ethyl [Vascepa] 1 gram Capsule
2 g PO BID
Wegovy 1.7 mg/0.75 mL Pen Injector
1.7 mg SC SA
carvedilol 12.5 MG tablet
25 mg PO BID
tamsulosin 0.4 mg capsule
0.4 mg PO HS 14 Days Qty: 14 0RF
phenazopyridine [Pyridium] 200 mg tablet
200 mg PO BID PRN (Reason: dysuria) 4 Days Qty: 8 0RF
Referrals:
Jossie Mendez DO [Family Provider] -
Interventions
Interventions:
*Risk Screen - Suicide Last Done: 01/05/24 02:06
*General Assessment Last Done: 01/04/24 23:25
*Neglect/Abuse Screening Last Done: 01/05/24 01:59
ED- Fall Risk Assessment Last Done: 01/05/24 01:59
*ED COVID-19 Vaccine History Last Done: 01/05/24 01:59
ED-Male Genitourinary Assessment Last Done: 01/05/24 01:59
Discharge Date and Time
Print Language: TURKMEN
[2024-01-05 03:17] LABS: Urine Red Blood Cell >100 /HPF (0-2)
[2024-01-05 03:27] LABS: Urine Amorphous Seen
[2024-01-05 03:29] LABS: Urine Squamous Cell PRESENT /LPF (Few); Urine Urothelial Cell PRESENT /LPF (FEW)
[2024-01-05] MEDS: NSS 1000 IV ×2 (03:37→05:24)
[2024-01-05] MEDS: ZOFRAN 4 MG IV ×2 (03:44→20:22)
--- NOTE | 2024-01-05 05:12 | HPS.HSE ---
Family Physician
-
Family Physician: Jossie Mendez DO
Chief Complaint
-
N/V/D
History of Present Illness
Patient is a 63y M with PMH significant for hypertension, PA-Fib and recent kidney stones / ureteral stent placement who presents to ED complaining of N/V/D x several days. Patient notes that he was recently on a cruise ([place], [place] and [place])
and returned home yesterday. He felt well on the cruise; however, he developed loose stools in the airport on Thursday AM. He has since had progressive loose, watery, non-bloody stools. He states that he has averaged about 1 BM per hour. He has
also felt nauseated with emesis beginning in the past 24 hours. He notes crampy abdominal pain - mostly in the R groin area - as well as burning with urination. He reports that his urine has appeared progressively darker over the past several days.
He denies any fevers / chills. He complains of overall weakness and general malaise.
He has no specific / known sick contacts.
He states that he stopped taking his ASA due to dark urine that he thought might be blood.
He also did not take his usual Wegovy dose this past Thursday due to his symptoms.
Medical History
Past Medical History
Past Medical History: Reports Other
Additional Past Medical History:
Hypertension
Paroxysmal Atrial Fibrillation
Renal Cell Carcinoma
Kidney Stones
Asthma
Past Surgical History: Reports Other
Additional Past Surgical History:
Partial L Nephrectomy
Cystoscopy / Right Ureteral Stent (12/18/23)
Social History
Tobacco: Non-smoker
Alcohol: Occasional
Drug: None
Family History
Family History: Not pertinent
Allergies / Home Medications
Allergies reflects when Allergies were last updated in [employer].
Home Medications with original date entered in [employer]
Allergy/Medication List:
Allergies
Allergy/AdvReac Type Severity Reaction Status Date / Time
oxycodone Allergy itching, Verified 01/04/24 23:31
rash
Home Medications
acetaminophen 325 mg tablet 650 mg PO BIDPRN PRN MILD PAIN 05/25/17
multivitamin with folic acid 400 mcg tablet (Tab-A-Domenico) 1 tab PO HS Supplement 05/25/17
aspirin 81 mg tablet,delayed release 81 mg PO DAILY Blood Clot Prevention/Tx 12/17/23
carvedilol 12.5 mg tablet 25 mg PO BID Blood Pressure 12/17/23
icosapent ethyl 1 gram capsule (Vascepa) 2 g PO BID High Cholesterol 12/17/23
rosuvastatin 10 mg tablet 10 mg PO QPM High Cholesterol 12/17/23
semaglutide (weight loss) 1.7 mg/0.75 mL subcutaneous pen injector (Wegovy) 1.7 mg SC SA Diabetes 12/17/23
valsartan 320 mg tablet 320 mg PO DAILY Blood Pressure 12/17/23
phenazopyridine 200 mg tablet (Pyridium) 200 mg PO BID PRN dysuria 4 days #8 tabs 12/18/23
tamsulosin 0.4 mg capsule 0.4 mg PO HS 14 days #14 caps 12/18/23
Review of Systems
-
History Source: Patient
A 12 point ROS was completed and negative except as noted: Yes
Constitutional: Reports Fatigue; Denies Fever or Chills
EENT: Denies Sore Throat
Respiratory: Denies Cough or Trouble Breathing
Cardiac: Denies Chest Pain or Palpitations
Abdomen/GI: Reports Abdominal Pain, Nausea, Vomiting, Diarrhea and Anorexia; Denies Bloody Stools or Black Stools
: Reports Dysuria and Dark Urine; Denies Frequency or Flank Pain
Musculoskeletal: Denies Joint Pain or Edema
Neurological: Reports Dizzy; Denies Headache
Psych: Denies Depression or Anxiety
Physical Exam
Vital Signs
Vital Signs
Temp Pulse Resp BP Pulse Ox
98.1 F 83 16 97/68 97
01/04/24 23:25 01/05/24 03:00 01/05/24 03:00 01/05/24 03:00 01/05/24 03:00
Physical Exam
General: Other (63y M in no acute distress.)
HEENT: PERRLA and Other (Dry MM.)
Respiratory: Clear; No Wheezes, Rales or Rhonchi
Cardiac: S1/S2 and Regular Rhythm; No Murmur
GI: Soft, Non Distended, Normal Bowel Sounds and Other (Mild tenderness in the LUQ and RLQ. No rebound / guarding.)
Genito-urinary: No costovertebral tender
Musculoskeletal: No Clubbing, No Cyanosis and No Edema
Neuro: AO x 3
Laboratory Results
-
01/05/24 02:17
01/05/24 02:17
Laboratory Results
Total Bilirubin 1.1 mg/dl (0.2-1.3) 01/05/24 02:17
AST 33 U/L (17-59) 01/05/24 02:17
ALT 26 U/L (0-50) 01/05/24 02:17
Alkaline Phosphatase 47 U/L (38-126) 01/05/24 02:17
Troponin I Cancelled 01/04/24 23:14
Impression/Plan
-
A/P: Patient is a 63y M with PMH significant for HTN, A-Fib and recent kidney stones requiring R ureteral stent placement who presents to ED complaining of N/V/D.
Enteritis with Intractable N/V/D
Hypovolemia secondary to GI Losses
PATRICIA secondary to the above
Anion Gap Metabolic Acidosis secondary to the above
- Admit for further evaluation and treatment.
- Supportive care with IVFs / supplemental bicarb, antiemetics, etc.
- Check stool studies.
- Follow for clinical improvement.
- Follow for improvement in renal function (SCr = 1.9 compared to baseline of 1.0).
Kidney Stones
s/p R Ureteral Stent Placement
- CT imaging done in the ED today shows stent in good position.
- Urine with blood but no evidence of acute infection.
- Some symptoms may be due to presence of the stent itself. (dysuria / groin discomfort / etc)
- Follow for any new / worsening symptoms.
- Patient states that he was due for stent removal Thursday - but was cancelled due to his acute GI symptoms.
Benign Hypertension
- Currently hypotensive secondary to volume losses.
- Hold ARB.
- Continue carvedilol with holding parameters.
Paroxysmal Atrial Fibrillation
- Stable. Continue carvedilol as noted above.
- Not chronically on OAC.
Obesity due to excess calories
- Affects all aspects of care.
- Patient notes significant weight loss in the past few days - due to volume losses as noted above.
- Continue to hold Wegovy pending improvement in GI symptoms.
DVT Prophylaxis: SCDs
Code Status: Full
[2024-01-05 06:47] LABS: Hematocrit 35.8 % (39.0-52.0); Hemoglobin 12.4 g/dL (13.0-18.0); Mean Corp Hgb Conc. 34.6 g/dL (33.0-37.0); Mean Corpuscular Volume 86.7 fL (80.0-94.0); Mean Platelet Volume 10.3 fL (7.4-10.4); Platelet Count 195 10^3/uL (130-400); Red Blood Cell Count 4.13 10^6/uL (4.70-6.10); White Blood Cell Count 5.7 10^3/uL (4.8-10.8)
[2024-01-05] MEDS: SODIUM BICARBONATE 1150 MEQ IV ×2 (07:49→17:58)
[2024-01-05] MEDS: COREG 25 MG PO ×2 (08:58→20:22)
--- NOTE | 2024-01-05 09:32 | W.PN.HOSP.TC ---
Today's Communication/Plan
-
IV fluids
Follow stool cultures.
Follow BMP.
BRAT diet
Assessment / Plan
Assessment / Plan
Impression:
Patient is a 63y M with PMH significant for HTN, A-Fib and recent kidney stones requiring R ureteral stent placement who presents to ED complaining of N/V/D.
Acute gastroenteritis with intractable nausea, vomiting, diarrhea.
Acute kidney injury with increased anion gap metabolic acidosis secondary to hypovolemia
Conditions prior to admission:
Nephrolithiasis, status post right ureteral stent placement
Essential hypertension
Paroxysmal atrial fibrillation
Obesity due to excessive calories BMI 30
Plan:
Enteritis with Intractable N/V/D
Hypovolemia secondary to GI Losses
PATRICIA secondary to the above
Anion Gap Metabolic Acidosis secondary to the above
- Admit for further evaluation and treatment.
- Supportive care with IVFs / supplemental bicarb, antiemetics, etc.
- Check stool studies.
- Follow for clinical improvement.
- Follow for improvement in renal function (SCr = 1.9 compared to baseline of 1.0).
Kidney Stones
s/p R Ureteral Stent Placement
- CT imaging done in the ED today shows stent in good position.
- Urine with blood but no evidence of acute infection.
- Some symptoms may be due to presence of the stent itself. (dysuria / groin discomfort / etc)
- Follow for any new / worsening symptoms.
- Patient states that he was due for stent removal Thursday AM - but was cancelled due to his acute GI symptoms.
Benign Hypertension
- Currently hypotensive secondary to volume losses.
- Hold ARB.
- Continue carvedilol with holding parameters.
Paroxysmal Atrial Fibrillation
- Stable. Continue carvedilol as noted above.
- Not chronically on OAC.
Obesity due to excess calories
- Affects all aspects of care.
- Patient notes significant weight loss in the past few days - due to volume losses as noted above.
- Continue to hold Wegovy pending improvement in GI symptoms.
DVT Prophylaxis: SCDs
Code Status: Full
Anticipated Discharge: 24 - 48 hours
Subjective/Interval History
-
Date of Service: January 05, 2024
Objective Data
-
Labs:
Laboratory Results
01/05/24 01/05/24 01/05/24
02:17 06:37 07:13
WBC 7.0 5.7
Hgb 13.5 12.4 L
Hct 38.6 L 35.8 L
Plt Count 213 195
Sodium 139 Cancelled Pending
Potassium 4.2 Cancelled Pending
Chloride 106 Cancelled Pending
Carbon Dioxide 14 L* Cancelled Pending
BUN 44 H Cancelled Pending
Creatinine 1.9 H Cancelled Pending
Glucose 143 H Cancelled Pending
Calcium 9.9 Cancelled Pending
Total Bilirubin 1.1
AST 33
ALT 26
Alkaline Phosphatase 47
Vital Signs:
Vital Signs
Temp Pulse Resp BP Pulse Ox
98.0 F 84 17 122/75 97
01/05/24 08:20 01/05/24 08:58 01/05/24 08:20 01/05/24 08:58 01/05/24 08:20
Physical Exam
-
General: Well Developed and No Apparent Distress
HEENT: Normocephalic, Atraumatic and Moist Mucous Membranes
Respiratory: Clear to Auscultation
Cardiac: Regular Rhythm and S1/S2; Negative Murmur, Rub or Gallop
GI: Soft, Nontender, Nondistended and Normal Bowel Sounds; Negative Organomegaly
Rectal: Deferred by Provider
Musculoskeletal: No Clubbing, No Cyanosis and No Edema
Skin: Negative Rash
Neuro: Nonfocal/Grossly Intact
--- NOTE | 2024-01-05 11:31 | PTCARENOTE ---
pt aaox3 states no pain is having frequent watery stool. ivf running as ordered. nsr seen on monitor.
[2024-01-05] MEDS: CRESTOR 10 MG PO (17:23)
--- NOTE | 2024-01-05 18:22 | CM ---
CM reviewed chart. CM introduced self and role. Patient lives at home with his in a multi-level home. He has 3 steps to enter. He is independent and drives. He works FT in computer security. No +SDOHs. Has an active PCP and pharmacy.
--- NOTE | 2024-01-05 20:15 | PTCARENOTE ---
Pt c/o nausea, [employer] made aware, new order provided, see MAR.
[2024-01-05] MEDS: FLOMAX 0.4 MG PO (20:22)
[2024-01-06] VITALS (7 sets, daily range): BP systolic 75–113; BP diastolic 51–73; PULSE 76–100; BMI 30.7
[2024-01-06] MEDS: SODIUM BICARBONATE 1150 MEQ IV ×2 (01:06→07:41)
[2024-01-06 07:02] LABS: ALT (SGPT) 22 U/L (0-50); AST (SGOT) 27 U/L (17-59); Albumin 4.4 g/dl (3.5-5.0); Alkaline Phosphatase 53 U/L (38-126); Blood Urea Nitrogen 41 mg/dl (9-20); Calcium 9.4 mg/dl (8.4-10.2); Carbon Dioxide 22 mmol/L (22-30); Chloride 101 mmol/L (98-107); Estimated Creatinine Clearance 61 ml/min; Glucose 135 mg/dl (70-99); Potassium 3.7 mmol/L (3.5-5.1); Sodium 139 mmol/L (135-145); Total Bilirubin 1.3 mg/dl (0.2-1.3); Total Protein 7.1 g/dl (6.3-8.2); eGFR 52.31
[2024-01-06] MEDS: COREG 25 MG PO ×2 (07:41→20:32)
--- NOTE | 2024-01-06 12:46 | CM ---
Met with patient at bedside.
IVF, BRAT diet,labs
No anticipated needs
PLAN: Home, no needs
to transport
[2024-01-06] MEDS: ZOFRAN 4 MG IV (13:25)
--- NOTE | 2024-01-06 16:39 | W.PN.HOSP.TC ---
Today's Communication/Plan
-
IV fluids.
Monitor oral intake.
Start low residue diet
Follow final stool cultures.
Assessment / Plan
Assessment / Plan
Impression:
Patient is a 63y M with PMH significant for HTN, A-Fib and recent kidney stones requiring R ureteral stent placement who presents to ED complaining of N/V/D.
Acute gastroenteritis with intractable nausea, vomiting, diarrhea.
Acute kidney injury with increased anion gap metabolic acidosis secondary to hypovolemia
Conditions prior to admission:
Nephrolithiasis, status post right ureteral stent placement
Essential hypertension
Paroxysmal atrial fibrillation
Obesity due to excessive calories BMI 30
Plan:
Enteritis with Intractable N/V/D
Hypovolemia secondary to GI Losses
PATRICIA secondary to the above
Anion Gap Metabolic Acidosis secondary to the above
- Check stool studies, pending
Creatinine and metabolic acidosis improving while on IV fluids.
IV fluids
Monitor oral intake.
Start low residue diet
Kidney Stones
s/p R Ureteral Stent Placement
- CT imaging done in the ED today shows stent in good position.
- Urine with blood but no evidence of acute infection.
- Some symptoms may be due to presence of the stent itself. (dysuria / groin discomfort / etc)
- Follow for any new / worsening symptoms.
- Patient states that he was due for stent removal Thursday - but was cancelled due to his acute GI symptoms.
Benign Hypertension
- Currently hypotensive secondary to volume losses.
- Hold ARB.
- Continue carvedilol with holding parameters.
Paroxysmal Atrial Fibrillation
- Stable. Continue carvedilol as noted above.
- Not chronically on OAC.
Obesity due to excess calories
- Affects all aspects of care.
- Patient notes significant weight loss in the past few days - due to volume losses as noted above.
- Continue to hold Wegovy pending improvement in GI symptoms.
DVT Prophylaxis: SCDs
Code Status: Full
Anticipated Discharge: 24 - 48 hours
Subjective/Interval History
-
Date of Service: January 06, 2024
Objective Data
-
Labs:
Laboratory Results
01/06/24
06:04
Sodium 139
Potassium 3.7
Chloride 101
Carbon Dioxide 22
BUN 41 H
Creatinine 1.5 H
Glucose 135 H
Calcium 9.4
Total Bilirubin 1.3
AST 27
ALT 22
Alkaline Phosphatase 53
Vital Signs:
Vital Signs
Temp Pulse Resp BP Pulse Ox
98.1 F 82 16 110/73 98
01/06/24 15:00 01/06/24 15:00 01/06/24 15:00 01/06/24 15:00 01/06/24 15:00
I&O
01/05/24 01/06/24 01/07/24
06:59 06:59 06:59
Intake Total 2445 / 2445
Balance 2445 / 2445
Physical Exam
-
General: Well Developed and No Apparent Distress
HEENT: Normocephalic, Atraumatic and Moist Mucous Membranes
Respiratory: Clear to Auscultation
Cardiac: Regular Rhythm and S1/S2; Negative Murmur, Rub or Gallop
GI: Soft, Nontender, Nondistended and Normal Bowel Sounds; Negative Organomegaly
Rectal: Deferred by Provider
Musculoskeletal: No Clubbing, No Cyanosis and No Edema
Skin: Negative Rash
Neuro: Nonfocal/Grossly Intact
[2024-01-06] MEDS: CRESTOR 10 MG PO (17:03)
[2024-01-06] MEDS: FLOMAX 0.4 MG PO (20:33)
[2024-01-07 00:26] VITALS: BP 102/63
[2024-01-07 03:39] VITALS: BP 104/70
[2024-01-07] MEDS: ZOFRAN 4 MG IV (07:51)
[2024-01-07] MEDS: COREG 25 MG PO (07:53)
[2024-01-07 08:51] VITALS: BP 102/65
[2024-01-07 11:03] VITALS: BP 103/66; BP 109/69; BP 87/58; PULSE 72; PULSE 83; PULSE 95
[2024-01-07 13:06] VITALS: BP 109/69
[2024-01-07 13:11] LABS: Blood Urea Nitrogen 23 mg/dl (9-20); Calcium 9.6 mg/dl (8.4-10.2); Carbon Dioxide 34 mmol/L (22-30); Chloride 96 mmol/L (98-107); Estimated Creatinine Clearance 77 ml/min; Glucose 106 mg/dl (70-99); Potassium 3.8 mmol/L (3.5-5.1); Sodium 140 mmol/L (135-145); eGFR > 60.00
--- NOTE | 2024-01-07 15:12 | W.DS.TRANS ---
DC Summary - Drug Safety Physician
-
Discharge Instructions:
Discharge Diagnosis/Procedures Acute gastroenteritis with intractable nausea,
vomiting, diarrhea.
Acute kidney injury with increased anion gap
metabolic acidosis secondary to hypovolemia
Diet Regular
Instructions:
Stand-Alone Forms:
Changes to Home Medications: No
Discharge Medications:
DC Medications w/original date entered in [employer]
multivitamin with folic acid 400 mcg tablet (Tab-A-Domenico) 1 tab PO HS Supplement 05/25/17
carvedilol 12.5 mg tablet 25 mg PO BID Blood Pressure 12/17/23
icosapent ethyl 1 gram capsule (Vascepa) 2 g PO BID High Cholesterol 12/17/23
rosuvastatin 10 mg tablet 10 mg PO QPM High Cholesterol 12/17/23
semaglutide (weight loss) 1.7 mg/0.75 mL subcutaneous pen injector (Wegovy) 1.7 mg SC SA Diabetes 12/17/23
valsartan 320 mg tablet 320 mg PO DAILY Blood Pressure 12/17/23
tamsulosin 0.4 mg capsule 0.4 mg PO HS #30 caps 01/07/24
Home Medication Changes
Pending Results: No
--- NOTE | 2024-01-07 15:37 | CM ---
met with patint at bedside.monitoring oral intake,tolerating low residue diet.stable for dc home with no needs.
== END 2024-01-07 16:41 | disposition home or self-care (01) | DRG 392 ==
LOC: 3 WEST ACU 05:22
PROVIDERS: ADMITTING PHYSICIAN Hospitalist; ATTENDING PHYSICIAN Internal Medicine; EMERGENCY PHYSICIAN Emergency Medicine; FAMILY PHYSICIAN Family Medicine
DX: K52.9 Noninfective gastroenteritis and colitis, unspecified (principal); N17.9 Acute kidney failure, unspecified; E87.21 Acute metabolic acidosis; N20.0 Calculus of kidney; I10 Essential (primary) hypertension; I95.9 Hypotension, unspecified; I48.0 Paroxysmal atrial fibrillation; E66.09 Other obesity due to excess calories; Z68.30 Body mass index [BMI] 30.0-30.9, adult; E86.1 Hypovolemia
CPT/HCPCS: 74176; 80048; 80053; 81003; 81015; 85025; 85027; 87045; 87046; 87086; 87324; 87427; 87449; 89055; 93005; 96361; 96374; 99285

== ENCOUNTER → 2024-11-24 12:21 | Outpatient (REF) | payer BC, SELFPAY | LOC: DHSLP 12:21 | PROVIDERS: ATTENDING PHYSICIAN Student in an Organized Health Care Education/Training Program | DX: G47.33 Obstructive sleep apnea (adult) (pediatric) (principal); R06.83 Snoring | CPT/HCPCS: 95800 ==

== ENCOUNTER 2025-02-08 10:15 | Emergency (ER) | payer BC, SELFPAY ==
[2025-02-08 10:22] VITALS: BP 167/100
--- NOTE | 2025-02-08 10:44 | ED.GENMED ---
History of Present Illness
General
Chief Complaint: Flank Pain
Source: patient
Exam Limitations: none
Time Seen by Provider: 02/08/25 10:31
Nursing documentation reviewed up to this point in time: agreed with
History of Present Illness
History of Present Illness:
Patient is a 64-year-old male who presents to the emergency department for evaluation of right flank pain. Patient reports relatively acute onset pain in his right lower abdomen around 7:30 AM this morning which then seem to radiate into his right
flank. He has had multiple episodes of nausea and vomiting since onset of discomfort. Patient describes very dark colored urine which has not been ongoing for the past few days. Patient denies any fever or chills. No anorexia, diarrhea, chest
pain, or shortness of breath.
He was actually seen by his urologist, Dr. Jacobsen, this past Thursday given he had been experiencing a few days of dark urine. At the time of his appointment he was experiencing painless hematuria and had no flank pain. He was scheduled for a
cystoscopy this coming 02/13/2025 for further evaluation.
Patient does have a past history of kidney stones which have required urologic intervention.
Past History
Past History
ED Past Medical History: Arrthythmia (Atrial fib), Asthma, Cancer (Left-sided kidney cancer) and HTN
ED Past Surgical History: Urological
Social History
Tobacco: Non-smoker
Alcohol: Occasional
Drug: None
Personal:
Living: with family
Employment: Employed
Family History
Family History: Other
Review of Systems
Review of Systems
Allergies reviewed?: Yes
All Other Systems: ROS reviewed and negative except as documented in HPI and ROS
Phy Exam
Physical Exam
Physical Exam:
Vitals: Hypertensive on arrival, otherwise vital signs stable. Afebrile
General: Patient is mildly uncomfortable appearing
Skin: Warm and dry, no rashes or lesions
Head: Normocephalic, atraumatic
Eyes: Sclera nonicteric. EOMs intact. No nystagmus.
Neck: Normal ROM, no cervical spine tenderness, no meningismus
Cardiac: Regular rate and rhythm, no murmurs.
Pulm: Normal respiratory effort. Lungs clear bilaterally
Abdomen: Abdomen soft. No reproducible tenderness in right lower quadrant. No focal tenderness McBurney's point. No CVA tenderness
Extremities: No evidence of cyanosis or edema
Neuro: AAOx3. Grossly intact.
Psychiatric: Normal affect.
Course
Orders/Labs/Results
Orders:
Orders
02/08/25 10:36
Complete Blood Count/With Diff Urgent
Comprehensive Metabolic Panel Urgent
Urinalysis Reflex To Culture Urgent
Date Specimen was Collected: 02/08/25
Time Specimen was Collected: 10:34
Urine Microscopic Reflex Cult Urgent
Urine Culture Urgent
LORENZA Source: U
Specimen Description:
Date Specimen was Collected: 02/08/25
Time Specimen was Collected: 10:34
02/08/25 10:43
Abdomen/Pelvis wo Contrast CT [CT Abd/pelvis Wo Iv Cont] Urgent
Comment:
Reason For Exam: R flank pain, hematuria
Ketorolac [Toradol] 15 mg IV NOW STA
Ondansetron Injectable [Zofran] 4 mg IV NOW STA
02/08/25 10:44
0.9% Sodium Chloride 1000 ml [Nss] 1,000 ml IV BOLUS
02/08/25 12:50
Tamsulosin [Flomax] 0.4 mg PO NOW STA
02/08/25 13:07
Cefdinir [Omnicef] 300 mg PO NOW STA
Abnormal Lab Results
02/08/25
10:36
MPV 10.5 H fL
(7.4-10.4)
Absolute Neuts (auto) 6.9 H 10^3/uL
(1.4-6.5)
Absolute Monos (auto) 0.7 H 10^3/uL
(0.1-0.6)
Neutrophils % 76.2 H %
(42.2-75.2)
Lymphocytes % 13.9 L %
(20.5-51.1)
Glucose 127 H mg/dl
(70-99)
Urine Ketones 1+ A
(Negative)
Ur Occult Blood Reflex 4+ A
(Negative)
Urine Nitrite (Reflex) Positive A
(Negative)
Leukocyte Esterase Rfl 2+ A
(Negative)
Urine RBC >100 A /HPF
(0-2)
Urine Bacteria (Reflex) Moderate A
(Negative)
Urine Albumin (Reflex) 3+ A
(Neg - Trace)
02/08/25 10:36
02/08/25 10:36
Vital Signs
Initial and Last Documented VS:
Initial Vital Signs
Temp Pulse Resp BP Pulse Ox
97.6 F 60 16 167/100 98
02/08/25 10:22 02/08/25 10:22 02/08/25 10:22 02/08/25 10:22 02/08/25 10:22
Last Documented Vital Signs
Temp Pulse Resp BP Pulse Ox
98 F 60 16 145/87 98
02/08/25 12:35 02/08/25 12:35 02/08/25 10:22 02/08/25 12:35 02/08/25 12:35
MDM/Problems Addressed
Differential Diagnosis Includes:
Not limited to: Renal colic, pyelonephritis, appendicitis, muscle strain/spasm, malignancy, etc.
MDM/Problems Addressed:
64-year-old male presenting with acute onset right flank pain with nausea/vomiting. Patient has been having painless gross hematuria for 1 week, was seen by Dr. Jacobsen and scheduled for cystoscopy in a few days. No fevers, chest pain, shortness
of breath. He does have hx of kidney stones. Vitals and physical exam as above.
Differential as above. With recent hematuria and new onset flank pain � highly suspicious for obstructing ureteral calculi. Will check labs, UA, noncontrast CT scan abdomen/pelvis. Will treat pain, give IV fluids and reassess.
Labs unremarkable. UA with many RBC�s, however, is also nitrate positive with 2+ leukocyte esterase. CT scan reveals 4 mm calculus in right proximal ureter.
I discussed with urology, Dr. Jacobsen on the phone who reviewed UA and labs. He does not feel patient requires admission for urgent urological intervention at this time. He recommends discharge home with pain control and oral antibiotics. He will
follow up with patient closely outpatient.
Very strict return precautions discussed with patient who is comfortable with this plan and will monitor for any signs of infection.
Chronic conditions affecting care:
Hypertension, history of kidney stones
Acute Exacerbation and/or Progression of Chronic Illness:
Acutely hypertensive, obstructing right ureteral calculi
*Radiology
Radiology exam reviewed: radiology read reviewed
*Pulse Oximetry
SaO2: 98
Oxygen Mode of Delivery: Room air
Patient hypoxic: no
*EKG
Interpreted by ED Provider?: NA
*Cambering Machine Operator Interpretation
Rate: Cambering Machine Operator- N/A
*Critical Care Note
Total Time (30-74mins, 75-104mins- exclusive of procedures): Not Applicable
Patient Management
Discussion with other providers: Flute Polisher (Case discussed with urology)
ED Attending Note
-
Portions of this chart may have been created with voice recognition software.� Occasional wrong word or��sound alike� substitutions may have occurred due to the inherent limitations of voice recognition software.
Discharge Plan
Departure
Patient Disposition: Home (Routine Discharge)
Date of Disposition: 02/08/25
Time of Disposition: 12:56
Patient with high blood pressure during this ER visit?: Yes
Condition: Good
Discharge Problem:
Calculus of proximal right ureter
Instructions: Kidney Stones (DC), BLOOD PRESSURE
Prescriptions:
New
cefdinir 300 mg capsule
300 mg PO BID 7 Days Qty: 14 0RF
tamsulosin 0.4 mg capsule
0.4 mg PO DAILY Qty: 14 0RF
oxycodone 5 mg tablet
5 mg PO Q8H PRN (Reason: Pain) Qty: 7 0RF
ondansetron 4 mg tablet,disintegrating
4 mg PO Q8H PRN (Reason: nausea and vomiting) Qty: 7 0RF
No Action
multivitamin with folic acid [Tab-A-Domenico] 1 TABLET tablet
1 tab PO HS
valsartan 320 mg Tablet
320 mg PO DAILY
rosuvastatin 10 mg Tablet
10 mg PO QPM
icosapent ethyl [Vascepa] 1 gram Capsule
2 g PO BID
Wegovy 1.7 mg/0.75 mL Pen Injector
1.7 mg SC SA
carvedilol 12.5 MG tablet
25 mg PO BID
tamsulosin 0.4 mg Capsule
0.4 mg PO HS Qty: 30 0RF
Referrals:
Angel Jacobsen MD [Active, Urology] - Next open appointment
Sarmad Snow MD [Family Provider, Family Practice]
Activity Restrictions/Additional Instructions:
RETURN TO THE EMERGENCY DEPARTMENT WITH ANY FEVER, CHILLS, INTRACTABLE PAIN, INTRACTABLE NAUSEA/VOMITING, WORSENING IN CURRENT SYMPTOMS, OR ANY OTHER CONCERNS
- Your CT scan revealed a 4 mm stone in your right proximal ureter.
- Please take 600 mg of ibuprofen every 6-8 hours as needed for pain. You can alternate and Tylenol, as well. It is important to stay well-hydrated.
- A prescription for antibiotics has been sent to your pharmacy. Please take twice a day for the next week. Continue to take Flomax daily until stone passes
- Follow-up with urology for further evaluation/management and to ensure that your symptoms are improving
Monitor your symptoms closely and return to the emergency department with any acute worsening/new symptoms or any signs of infection
Interventions
Interventions:
*Risk Screen - Suicide Last Done: 02/08/25 10:42
*General Assessment Last Done: 02/08/25 10:42
*Neglect/Abuse Screening Last Done: 02/08/25 10:42
*ED COVID-19 Vaccine History Last Done: 02/08/25 10:42
*ED Influenza Vaccine History Last Done: 02/08/25 10:42
*Nursing Disposition Last Done: 02/08/25 14:11
KS-Nzjjpf-Iagsmxztve Assessment Last Done: 02/08/25 10:42
ED-Male Genitourinary Assessment Last Done: 02/08/25 10:42
Discharge Date and Time
Discharge Date/Time: 02/08/25 14:11
Print Language: BELARUSIAN
[2025-02-08 10:47] LABS: Urine Character Slightly Cloudy (Clear)
[2025-02-08] MEDS: ZOFRAN 4 MG IV (10:50)
[2025-02-08] MEDS: TORADOL 15 MG IV (10:50)
[2025-02-08] MEDS: NSS 1000 IV (10:52)
[2025-02-08 10:53] LABS: Hematocrit 42.4 % (39.0-52.0); Hemoglobin 14.1 g/dL (13.0-18.0); Mean Corp Hgb Conc. 33.3 g/dL (33.0-37.0); Mean Corpuscular Volume 86.4 fL (80.0-94.0); Nucleated Red Blood Cells % 0 % (-); Platelet Count 180 10^3/uL (130-400); Red Cell Dist. Width 11.9 % (11.5-14.5)
[2025-02-08 11:04] LABS: ALT (SGPT) 29 U/L (0-50); AST (SGOT) 35 U/L (17-59); Albumin 4.9 g/dl (3.5-5.0); Alkaline Phosphatase 72 U/L (38-126); Blood Urea Nitrogen 13 mg/dl (9-20); Calcium 9.5 mg/dl (8.4-10.2); Carbon Dioxide 29 mmol/L (22-30); Chloride 105 mmol/L (98-107); Glucose 127 mg/dl (70-99); Potassium 4.7 mmol/L (3.5-5.1); Sodium 139 mmol/L (135-145); Total Protein 8.0 g/dl (6.3-8.2); eGFR > 60.00
[2025-02-08 11:22] LABS: Urine Red Blood Cell >100 /HPF (0-2)
[2025-02-08 11:23] LABS: Urine Squamous Cell 0-2 /LPF (Few)
[2025-02-08 12:35] VITALS: BP 145/87
[2025-02-08] MEDS: OMNICEF 300 MG PO (13:32)
[2025-02-08] MEDS: FLOMAX 0.4 MG PO (13:32)
== END 2025-02-08 14:11 | disposition home or self-care (01) ==
LOC: EMR 10:15
PROVIDERS: Physician Assistant; EMERGENCY PHYSICIAN Student in an Organized Health Care Education/Training Program; FAMILY PHYSICIAN Student in an Organized Health Care Education/Training Program
DX: N13.2 Hydronephrosis with renal and ureteral calculous obstruction (principal); I10 Essential (primary) hypertension; I48.91 Unspecified atrial fibrillation; J45.909 Unspecified asthma, uncomplicated; Z87.442 Personal history of urinary calculi; Z85.528 Personal history of other malignant neoplasm of kidney
CPT/HCPCS: 99284; 96374; 96375; 96361; 74176; 80053; 81003; 81015; 85025; 87086